=== PATIENT | female | born 2000 | race Caucasian/White ===

== ENCOUNTER 2021-10-02 13:49 | Emergency (ER) | payer OTHER, SELFPAY ==
[2021-10-02 13:58] VITALS: BP 104/68; PULSE 74; RESP 18; TEMP 36.9; O2SAT 98; BMI 21.3
--- NOTE | 2021-10-02 14:07 | CRLHL7_ITS ---
For Patients: As a result of the Century Cures Act, medical imaging exams and procedure reports are released immediately into your electronic medical record. You may view this report before your referring provider. If you have questions, please contact your health care provider. INDICATION: Right lower quadrant pain. TECHNIQUE: Ultrasound OB pelvis transabdominal and transvaginal. Real-time aparicio-scale imaging of the pelvis was performed. COMPARISON: None. FINDINGS: Small anechoic structure in the endometrial canal measures 5 x 2 x 4 mm, with a mean diameter of 3.7 mm. This is probably a gestational sac, which would correspond to of 5 weeks and 1 day. No yolk sac or pole. The ovaries are of normal size. No suspicious fluid collections in the cul-de-sac. IMPRESSION: Probable gestational sac in the endometrial canal. Recommend correlation with quantitative beta HCG and follow-up pelvic ultrasound as indicated. Dictated by Asher Stover MD @ 10/02/2021 3:25:08 PM (Electronically Signed)
--- NOTE | 2021-10-02 14:07 | ED.ABDPAIN ---
HPI - Abdominal Pain General Chief Complaint: Abdominal Pain Stated Complaint: w Abdominal Cramping Time Seen by Provider: 10/02/21 13:55 History of Present Illness HPI narrative: This 21-year-old female comes in reporting pain in her right lower quadrant that began last evening. She states that she is 4-6 weeks . She called the OB Clinic and was instructed to come here to rule out of possible ectopic . She does not have any vaginal bleeding or discharge. She did have her appendix removed about 3 months ago and completely recovered from that episode. Related Data Home Medications Medication Instructions Recorded Confirmed No Known Home Medications 10/02/21 10/02/21 Allergies Allergy/AdvReac Type Severity Reaction Status Date / Time lactose AdvReac Intermediate Verified 09/29/21 09:56 Review of Systems Status of ROS Reports: 10 or more systems reviewed and unremarkable except as noted in History and below Narrative Constitutional: No fevers, no weight gain or loss. Eyes: No discharge. No vision changes. HENT: No congestion, no sore throat, no ear pain. Cardiovascular: No chest pain, no palpitations. Respiratory: No shortness of breath, no wheezes, no cough. Gastrointestinal: No vomiting, no diarrhea. Abdominal pain as described above. Genitourinary: No dysuria, no hematuria. Musculoskeletal: Normal range of motion. Skin: No rashes, no pruritis. Neurological: No dizziness, weakness, sensory change, speech change. Endo/Heme/Allergies: No bruising or bleeding. No polydipsia. Pysch: no suicidality, no anxiety, no insomnia. All other systems reviewed and are negative. PFSH PFSH Social History Smoking Status: Never smoker How often do you have a drink containing alcohol: monthly or less How often do you have six or more drinks on one occasion: Never AUDIT-C Alcohol total score: 1 Non-prescribed substance use: denies use Exam Narrative: Exam Narrative: Constitutional: Well-developed, well-nourished, no acute distress. HEENT: Normocephalic, atraumatic. Neck: Normal range of motion. Nontender. Supple. Heart: Regular. No murmurs. Normal rate. Intact distal pulses. Lungs: Clear to auscultation. No chest discomfort. No wheezes, rhonchi, or rales. Abdomen: Normal bowel sounds. Mild tenderness in the right lower quadrant. No rebound tenderness. Genitalia: Deferred. Back: No midline tenderness. Normal range of motion. Extremities: Normal range of motion. No injury. Skin: Intact. No rash. Warm. No erythema or pallor. Neurologic: No altered sensation. No weakness. Alert and oriented. Psychiatric: No suicidality. No anxiety or depression. No insomnia. Nursing notes and vitals signs are reviewed. Const: Vital Signs, click to edit/add: Vital Signs - 24 hr 10/02/21 13:58 Temperature 98.5 F Pulse Rate [Right Pulse Oximeter] 74 Respiratory Rate 18 Blood Pressure [Ri ght Upper Arm] 104/68 Pulse Oximetry 98 Oxygen Delivery Me thod Room Air Course Vital Signs Vital signs: Initial Vital Signs Temperature 98.5 F 10/02/21 13:58 Temperature Source Temporal Artery Scan 10/02/21 13:58 Pulse Rate 74 10/02/21 13:58 Respiratory Rate 18 10/02/21 13:58 Blood Pressure 104/68 10/02/21 13:58 Blood Pressure Mean 80 10/02/21 13:58 Blood Pressure Position Sitting 10/02/21 13:58 Pulse Oximetry 98 10/02/21 13:58 Oxygen Delivery Method 10/02/21 13:58 Vital Signs Temperature 98.5 F 10/02/21 13:58 Pulse Rate 74 10/02/21 13:58 Respiratory Rate 18 10/02/21 13:58 Blood Pressure 104/68 10/02/21 13:58 Pulse Oximetry 98 10/02/21 13:58 Oxygen Delivery Method 10/02/21 13:58 Temperature 98.5 F 10/02/21 13:58 Pulse Rate 74 10/02/21 13:58 Respiratory Rate 18 10/02/21 13:58 Blood Pressure 104/68 10/02/21 13:58 Pulse Oximetry 98 10/02/21 13:58 Oxygen Delivery Method 10/02/21 13:58 MDM - Abdominal Pain MDM Narrative Medical decision making narrative: This patient is 4-6 weeks and comes in with some pain in her right lower quadrant. She had her appendix removed about 3 months ago. A pelvic ultrasound was performed which shows an intrauterine . There is a corpus luteum on the right ovary is likely causing some discomfort for her. These results are communicated with the patient. She is okay to return home to continue current plans. Discharge Plan Discharge Clinical Impression: Abdominal pain Additional Instructions: Follow up with MD as needed. Return if worsening or recurrent symptoms happen. Prescriptions: No Action No Known Home Medications Follow Up/Referrals: Provider,Not a Local [Primary Care Provider] - Stand Alone Forms: [employer] Info Instructions
== END 2021-10-02 15:08 | disposition home or self-care (01) ==
LOC: ED 14:26
PROVIDERS: Emergency Provider Emergency Medicine Emergency Medical Services
DX: R10.31 Right lower quadrant pain (principal); Z3A.01 Less than 8 weeks gestation of pregnancy
CPT/HCPCS: 76801; 76817; 99283; 99284

== ENCOUNTER 2021-10-13 14:47 | Outpatient (CLI) | payer OTHER, SELFPAY ==
[2021-10-13 20:33] LABS: Hepatitis B Surface Antigen* Negative (Negative)
[2021-10-13 20:44] LABS: HIV 1/2/P24 Combo Screen* Negative (Negative)
[2021-10-13 20:50] LABS: Hepatitis C Virus Antibody* Negative (Negative)
[2021-10-13 22:12] LABS: Chlamydia DNA Amplified* NOT DETECTED (No Detected); GC DNA Amplified* NOT DETECTED (No Detected)
[2021-10-15 16:11] LABS: Varicella-Zoster Virus Ab, IgG 618.8 IV
[2021-10-15 16:14] LABS: Rubella Antibody IgG 13.3 IU/mL
[2021-10-15 21:10] LABS: Rapid Plasma Reagin (RPR) Non Reactive (Non Reactive)
== END 2021-10-13 14:48 | disposition home or self-care (01) ==
PROVIDERS: Visit Provider Advanced Practice Midwife
DX: Z34.91 Encounter for supervision of normal pregnancy, unspecified, first trimester (principal); Z3A.01 Less than 8 weeks gestation of pregnancy
CPT/HCPCS: 76817; 84702; 86592; 86703; 86762; 86787; 86803; 86850; 86900; 86901; 87086; 87340; 87491; 87591

== ENCOUNTER 2021-10-15 15:35 | Outpatient (CLI) | payer OTHER, SELFPAY | END 2021-10-15 15:36 | disposition home or self-care (01) | PROVIDERS: Visit Provider Advanced Practice Midwife | DX: Z34.90 Encounter for supervision of normal pregnancy, unspecified, unspecified trimester (principal) | CPT/HCPCS: 84702 ==

== ENCOUNTER 2021-10-23 08:15 | Outpatient (CLI) | payer OTHER, SELFPAY ==
--- NOTE | 2021-10-23 08:15 | CRLHL7_ITS ---
For Patients: As a result of the Century Cures Act, medical imaging exams and procedure reports are released immediately into your electronic medical record. You may view this report before your referring provider. If you have questions, please contact your health care provider. INDICATION: Follow-up viability COMPARISON: 10/13/2021 TECHNIQUE: Real-time aparicio-scale imaging of the pelvis was performed. FINDINGS: Sonographic imaging demonstrates a single living intrauterine gestation. The embryo demonstrates a regular cardiac rate measuring 155 beats per minute. The embryo`s crown-rump length measurement of 1.5 cm corresponds to a gestational age of 7 weeks 6 days with a sonographic due date of 06/05/2022. There is a normal-appearing yolk sac. There are no gross abnormalities noted within the embryo at this early state of development. The gestational sac has a normal appearance. There is no evidence of a perigestational hemorrhage. The amount of fluid within the sac appears appropriate for gestational age. The cervix is closed. The myometrium appears normal. The ovaries are of normal size. Corpus luteal cyst right ovary. There are no suspicious fluid collections noted in the cul-de-sac. IMPRESSION: Normal first trimester OB ultrasound exam. Gestational age calculated at 7 weeks 6 days with a sonographic due date of 06/05/2022. Dictated by Manolo Montgomery MD @ 10/23/2021 10:18:02 AM (Electronically Signed)
== END 2021-10-23 08:16 | disposition home or self-care (01) ==
LOC: US 08:17
PROVIDERS: Visit Provider Advanced Practice Midwife
DX: Z34.91 Encounter for supervision of normal pregnancy, unspecified, first trimester (principal); Z3A.01 Less than 8 weeks gestation of pregnancy
CPT/HCPCS: 76817

== ENCOUNTER 2022-01-20 12:21 | Outpatient (CLI) | payer OTHER, SELFPAY | END 2022-01-20 12:22 | disposition home or self-care (01) | LOC: US 12:21 | PROVIDERS: Visit Provider Pediatrics Neonatal-Perinatal Medicine | DX: O98.512 Other viral diseases complicating pregnancy, second trimester (principal); Z3A.20 20 weeks gestation of pregnancy | CPT/HCPCS: 76811 ==

== ENCOUNTER 2022-03-16 13:38 | Outpatient (CLI) | payer SELFPAY ==
[2022-03-18 02:21] LABS: Rapid Plasma Reagin (RPR) Non Reactive (Non Reactive)
== END 2022-03-16 13:39 | disposition home or self-care (01) ==
PROVIDERS: Visit Provider Advanced Practice Midwife
DX: Z34.93 Encounter for supervision of normal pregnancy, unspecified, third trimester (principal); Z3A.28 28 weeks gestation of pregnancy
CPT/HCPCS: 86592

== ENCOUNTER 2022-04-28 18:15 | Outpatient (CLI) | payer OTHER, SELFPAY ==
[2022-04-28 19:48] VITALS: RESP 16; TEMP 36.9
[2022-04-28 19:51] VITALS: BP 107/62; PULSE 82
--- NOTE | 2022-04-28 22:55 | PM.OBHPAP1 ---
OB - H&P; HPI Antepartum History of Present Illness Date Seen: 04/28/22 Chief complaint: Abdominal injury by dog Narrative: Dara Michaels is a 22 year old at 34 2/7 weeks gestation that presented to OB triage for evaluation following a head-butt hit to her abdomen by her [place] dog. She reports the incident occurred at about 430 pm this afternoon. She did not fall but reported having sudden abdominal discomfort. Initially she just thought the pain was from the hit but then began to notice continuing abdominal discomfort and contractions. She called and was advised to come in for further evaluation. On arrival she had contractions about every 5 minutes, more frequent than at home. Since then, they have slowly spaced out some but she continues to have 6+ contractions per hour. She has irritability that she also notices between the contractions. She was not aware of contractions prior to the incident. She denies any leaking of fluid or bleeding. She does endorse active movement. She has an anterior placenta. OB Problem List: 1. Autoimmune disorder (likely Ankylosing spondylitis, her mom has and she has s/sx but no dx) ? growth US at 32weeks: Plans to do 36 week growth US 2. Arthritis in her hips and feet 3. Carpal tunnel 4. ADHD and anxiety (not currently taking medications, would like therapy) Was taking Adderall, stopped with ; Considering restarting 5. Sister with Von[employer]illebr[employer] 6. Asthma, seasonal Uses albuterol nebulizer usually in fall Has inhaler as needed 7. COVID in early November Level II US: Normal per Dr. Mckeon Growth US at 32 weeks: Declined, plans 36 week Growth US at 36 weeks: ordered Review of Systems Status of ROS: Reports: 6 or more systems reviewed and unremarkable except as noted in History and below Cardio: Denies: lightheadedness or shortness of breath with exertion Resp: Denies: shortness of breath GI: Reports: abdominal pain (Mild, 4/10; more wave like than constant; some tenderness) Meds Home Medications and Allergies Home Medications Medication Instructions Recorded Confirmed Type ferrous fumarate 200 mg (65 mg 1 tab PO QDAY 04/27/22 04/28/22 History iron)-vit C 25 mg tablet,extend release prenat.vits,kylee,[id number]-[id number]-[id number] 1 tab PO QDAY 04/27/22 04/28/22 History Allergies Allergy/AdvReac Type Severity Reaction Status Date / Time lactose AdvReac Intermediate Verified 04/27/22 10:55 OB - H&P: Exam Physical Exam: Vital signs: Temp Pulse Resp BP 98.4 F 82 16 107/62 04/28/22 19:48 04/28/22 19:51 04/28/22 19:48 04/28/22 19:51 Constitutional: Constitutional: no acute distress Routine HEENT Exam: Head: Present atraumatic Routine Neck Exam: Neck: Present full ROM Routine Respiratory Exam: Comments: Regular rate and rhythm Routine Abdominal Exam: Abdominal: Present soft and tenderness (diffuse) Detailed Labor and Delivery Exam: Patient Gravid: Yes Dilation (cm): 0 Cervix position: mid Consistency: firm Contraction frequency (min): 8 Tachysystole: No Contraction intensity: Mild Fetus (Single): Station: -2 Amniotic Membrane Status: intact Heart Rate Baseline: 125 Monitor Accelerations: Present Monitor Decelerations: None Machine [employer] Sander Variability: Moderate (6-25) Routine Back/Spine/Pelvis Exam: Back/Spine: full ROM Routine Skin Exam: Present intact; Absent ecchymosis Routine Neurological Exam: Present alert and oriented X3 Routine Psychiatric Exam: Present normal affect, normal thought process and cooperative OB - A/P Antepartum Assessment and Plan (1) Abdominal trauma: Status: Acute (2) : Status: Acute Plan ASSESSMENT:? 22 at 34 2/7 weeks gestation? Blunt Abdominal Trauma, anterior placenta Contractions ? PLAN:? 1. Admission for 24 hours of observation from time of injury, occurred at [address] Toledo who agreed with plan. Recommended cervical exam, CBC, and fibrinogen. She is comfortable keeping her at [facility] for observation. Pt would transfer to higher level of care facility with NICU access if risk for delivery were to increase due to gestational age. 2. Reviewed concern for abdominal trauma with notable contractions, not feeling them prior, and risk for abruption. Reviewed warning s/sx including sharp abdominal pain, contractions, or vaginal bleeding. 3. Continuous FHR monitoring. 4. Discussed rest/discomfort options with patient including tylenol and/or unisom for pain and sleep. 5. Anticipate discharge at 24 hours post trauma Additional Plan Plan: other (Continues monitoring, observation)
[2022-04-28 23:15] VITALS: BP 99/55; PULSE 78
[2022-04-28 23:17] VITALS: RESP 16; TEMP 36.7
[2022-04-29] VITALS (32 sets, daily range): BP systolic 99–107; BP diastolic 56–64; PULSE 70–214; RESP 16; TEMP 36.4–36.8; O2SAT 82–99
[2022-04-29 01:07] LABS: Basophils Absolute Auto 0.02 K/uL (0.00-0.30); Basophils Percent Auto 0.2 % (0.0-3.0); Eosinophils Absolute Auto 0.24 K/uL (0.00-0.50); Eosinophils Percent Auto 2.8 % (0.0-7.0); Hematocrit 29.1 % (33.0-51.0); Hemoglobin* 9.6 gm/dL (12.0-16.0); Immature Granulocytes Abs Auto 0.08 K/uL (0.00-0.30); Immature Granulocytes Pct Auto 0.9 %; Mean Corpuscular HGB Conc 33 gm/dL (32-36); Mean Corpuscular Hemoglobin 29 pg (26-34); Mean Corpuscular Volume 88 fL (80-100); Monocytes Percent Auto 8.3 % (0.0-11.0); Neutrophils Absolute Auto 5.02 K/uL (1.7-7.0); Neutrophils Percent Auto 57.8 % (42.0-72.0); Platelet Count* 183 K/uL (140-440); Red Blood Count 3.29 m/uL (4.00-5.20); White Blood Count* 8.68 K/uL (4.50-11.00)
[2022-04-29 01:08] LABS: Slide Review Reflex No
[2022-04-29] MEDS: ACETAMINOPHEN 500 MG TABLET 1000 MG PO (01:20)
[2022-04-29] MEDS: hydrOXYzine pamoate 25 MG CAPSULE 100 MG PO (01:22)
[2022-04-29 01:24] LABS: Fibrinogen* 369 mg/dL (200-450)
--- NOTE | 2022-04-29 16:11 | W.PM.OB.MED ---
DS: Providers Provider Time Seen by Provider: 16:11 Date Seen: 04/29/22 Primary care physician: Cathy Atkinson CNM Attending Physician on discharge: Graciela Carvalho CNM DS: Diagnosis Discharge Diagnosis (1) Abdominal trauma: Status: Acute (2) : Status: Acute Discharge Plan Discharge Disposition: Home, Self-Care Primary Care Provider: Cathy Atkinson Patient Instructions: OB Pre-term (<35wks) () DC Activity Restrictions/Additional Instructions: Patient verbalized understanding of reviewed discharge instructions. Discharge Medications: No Action albuterol sulfate [Ventolin HFA] 90 mcg/actuation HFA aerosol inhaler 1 inh inhalation ONCE Qty: 6.7 0RF ferrous fumarate-vitamin C 200 mg (65 mg iron)-25 mg tablet extended release 1 tab PO QDAY prenat.vits,kylee,gbj-[id number]-nbggo Tablet 1 tab PO QDAY Forms: [employer] Info Instructions Hospital Course Course Hospital Course: Dara is a at 34. 3 days. She was admitted yesterday after being head butted by her large dog. Upon admit, she noted ctx, which at the time felt as though they were getting stronger. The decision was made to keep her for observation for the full 24 hours. heart tones have remained reassuring throughout her stay. Currently baseline 130, mod variability, accels present, no decels. Occ ctx noted, appear to have spaced out. Occasional periods of uterine irritability also noted. Dara states ctx feel less pronounced and frequent than they did yesterday. Agrees with discharge. Previously reviewed signs to observe for, including rigid abdomen, pain, frequent ctx, decreased movement, and bleeding. She will call/be seen if these occur. Has follow up routine appointment scheduled. Labs Labs: Laboratory Tests 04/29/22 04/29/22 Range/Units 01:00 01:00 WBC 8.68 (4.50-11.00) K/uL RBC 3.29 L (4.00-5.20) m/uL Hgb 9.6 L (12.0-16.0) gm/dL Hct 29.1 L (33.0-51.0) % MCV 88 (80-100) fL MCH 29 (26-34) pg MCHC 33 (32-36) gm/dL RDW Coeff of Niki 13.0 (11.5-15.5) % Plt Count 183 (140-440) K/uL Neut % (Auto) 57.8 (42.0-72.0) % Lymph % (Auto) 30.0 (20-44) % [place] % (Auto) 8.3 (0.0-11.0) % Eos % (Auto) 2.8 (0.0-7.0) % Baso % (Auto) 0.2 (0.0-3.0) % Neut # (Auto) 5.02 (1.7-7.0) K/uL Lymph # (Auto) 2.60 (0.90-2.90) K/uL [place] # (Auto) 0.70 (0.00-0.90) K/UL Eos # (Auto) 0.24 (0.00-0.50) K/uL Baso # (Auto) 0.02 (0.00-0.30) K/uL Fibrinogen 369 (200-450) mg/dL OB Problem List Additional Plan (1) Abdominal trauma: Status: Acute (2) : Status: Acute DS: Summary Vital Signs Vital Signs: Vital Signs Temp Pulse Resp BP Pulse Ox 04/29/22 15:56 97.8 F 04/29/22 12:10 97.6 F 04/29/22 08:05 98.3 F 04/29/22 03:58 97.9 F 16 04/28/22 23:17 98.1 F 16 04/28/22 19:48 98.4 F 16 04/29/22 15:56 74 99/56 L 04/29/22 15:53 97 04/29/22 15:48 97 04/29/22 15:43 98 04/29/22 15:38 98 04/29/22 15:33 98 04/29/22 15:28 97 04/29/22 15:23 96 04/29/22 15:18 97 04/29/22 15:13 97 04/29/22 15:08 98 04/29/22 15:03 98 04/29/22 14:58 97 04/29/22 14:53 98 04/29/22 14:48 97 04/29/22 14:43 97 04/29/22 14:38 97 04/29/22 14:33 97 04/29/22 14:28 98 04/29/22 14:23 98 04/29/22 14:18 98 04/29/22 14:13 98 04/29/22 14:08 98 04/29/22 14:03 97 04/29/22 13:58 97 04/29/22 13:53 98 04/29/22 12:10 75 107/64 99 04/29/22 12:09 82 L 04/29/22 08:07 75 100/56 L 04/29/22 03:59 81 100/59 L 04/28/22 23:15 78 99/55 L 04/28/22 19:51 82 107/62 Discharge Examination General appearance: alert, in no apparent distress and normal affect
--- NOTE | 2022-04-29 16:25 | PC.OBNST ---
NST Note NST Note Start: 04/28/22 18:19 Freq: ONCE Status: Active Protocol: Document 04/29/22 16:20 AB (Rec: 04/29/22 16:25 AB [id number]) NST Note 2 Para (# of births) 0 EDC 06/07/22 Gestational Age In Weeks & Days 34 Weeks & 3 Days Patient Presented with Complaint(s) of Observation after an injury If Observation after an injury, describe Patient reports her dog punching her abdomen while jumping on her Reactive Yes ALICE Acuña Date 04/29/22 Reactive Yes ALICE Mcclain Date 04/29/22 OB NST charge Yes Complete NST Note via Write Note Yes The provider's electronic signature indicates the NST is reactive/appropriate for gestational age. *Note to provider: If an addendum is required, open the patient's chart and click on the note under the Nurse/Allied Health tab.
== END 2022-04-29 16:22 | disposition home or self-care (01) ==
LOC: OB OUT 18:16 → OB 18:16
PROVIDERS: PCP Advanced Practice Midwife; Visit Provider Advanced Practice Midwife
DX: O26.893 Other specified pregnancy related conditions, third trimester (principal); S39.91XA Unspecified injury of abdomen, initial encounter; Z3A.34 34 weeks gestation of pregnancy
CPT/HCPCS: 36415; 59025; 85025; 85384; 99213; A9270

== ENCOUNTER 2022-05-01 17:36 | Outpatient (CLI) | payer OTHER, SELFPAY ==
[2022-05-01 17:45] VITALS: BP 116/65; PULSE 86; RESP 20; TEMP 36.6
[2022-05-01 17:46] VITALS: PULSE 98; O2SAT 99
[2022-05-01 18:12] LABS: Appearance Urine Clear (Clear); Bilirubin Urine Negative (Negative); Blood Urine Negative (Negative); Color Urine Yellow (Yellow); Glucose Urine Negative (Negative); Ketones Urine Negative (Negative); Leukocyte Esterase Urine Negative (Negative); Nitrite Urine Negative (Negative); Protein Urine Negative (Negative); Specific Gravity Urine 1.015 (1.000-1.030); Urobilinogen Urine 0.2 (0.2-1.0); pH Urine 7.5 (5.0-8.5)
[2022-05-01 18:20] LABS: Amnisure Rom* Negative
--- NOTE | 2022-05-01 21:10 | PC.OBNST ---
NST Note NST Note Start: 05/01/22 17:42 Freq: ONCE Status: Discharge Protocol: Document 05/01/22 20:19 [facility] (Rec: 05/01/22 21:09 [facility] [id number]) NST Note 1 Para (# of births) 0 EDC 06/07/22 Gestational Age In Weeks & Days 34 Weeks & 5 Days Patient Presented with Complaint(s) of Contractions/cramping,Leaking fluid Reactive Yes Appropriate for Gestational Age Yes RN Joe Mccoy RN Date 05/01/22 Reactive Yes Appropriate for Gestational Age Yes ALICE Ibanez RN Date 05/01/22 OB NST charge Yes Complete NST Note via Write Note Yes The provider's electronic signature indicates the NST is reactive/appropriate for gestational age. *Note to provider: If an addendum is required, open the patient's chart and click on the note under the Nurse/Allied Health tab.
== END 2022-05-01 20:19 | disposition home or self-care (01) ==
LOC: OB OUT 17:36 → OB 17:37
PROVIDERS: PCP Advanced Practice Midwife; Visit Provider Advanced Practice Midwife
DX: O26.893 Other specified pregnancy related conditions, third trimester (principal); Z3A.34 34 weeks gestation of pregnancy
CPT/HCPCS: 59025; 81003; 84112; 99213

== ENCOUNTER 2022-05-11 12:49 | Outpatient (CLI) | payer OTHER, SELFPAY ==
--- NOTE | 2022-05-11 12:15 | CRLHL7_ITS ---
For Patients: As a result of the Century Cures Act, medical imaging exams and procedure reports are released immediately into your electronic medical record. You may view this report before your referring provider. If you have questions, please contact your health care provider. INDICATION: growth, h/o COVID in COMPARISON: 10/23/2021 TECHNIQUE: Real time aparicio scale imaging of the fetus was performed. FINDINGS: Sonographic imaging demonstrates a single living intrauterine gestation. Fetus demonstrates a regular cardiac rate of 150 beats per minute. Fetus has a vertex position. The placenta lies anteriorly. Amniotic fluid volume appears normal and there is a single deepest vertical pocket: 6.3 cm. The estimated weight is 2882gm which lies at the 54th %. BPD 59th percentile. HC 15th percentile. AC 83rd percentile. FL 13th percentile. The HC/AC ratio measures 0.96 range (0.93-1.08). IMPRESSION: Sonographic gestational age 36 weeks 0 days and sonographic due date 06/08/2022. Estimated weight 54th percentile. Abdominal circumference 83rd percentile. Dictated by Manolo Montgomery MD @ 05/12/2022 12:29:56 PM (Electronically Signed)
== END 2022-05-11 12:50 | disposition home or self-care (01) ==
LOC: US 12:50
PROVIDERS: Visit Provider Advanced Practice Midwife
DX: O98.513 Other viral diseases complicating pregnancy, third trimester (principal); U07.1 COVID-19; Z3A.36 36 weeks gestation of pregnancy
CPT/HCPCS: 76816

== ENCOUNTER 2022-05-11 15:02 | Outpatient (CLI) | payer OTHER, SELFPAY ==
[2022-05-12 16:19] LABS: Strep B DNA Probe POSITIVE (Negative)
[2022-05-12 19:03] LABS: Strep B Pen/Amox Allergy No
== END 2022-05-11 15:03 | disposition home or self-care (01) ==
LOC: NFLDREF 15:03
PROVIDERS: Visit Provider Advanced Practice Midwife
DX: Z34.93 Encounter for supervision of normal pregnancy, unspecified, third trimester (principal); Z3A.36 36 weeks gestation of pregnancy
CPT/HCPCS: 87081; 87653

== ENCOUNTER 2022-05-16 23:49 | Outpatient (CLI) | payer OTHER, SELFPAY ==
[2022-05-17 00:07] VITALS: BP 121/69; PULSE 84
[2022-05-17 00:15] VITALS: RESP 16; TEMP 36.8
--- NOTE | 2022-05-17 00:49 | PC.OBNST ---
NST Note NST Note Start: 05/16/22 23:51 Freq: ONCE Status: Active Protocol: Document 05/17/22 00:48 FRANCISCO (Rec: 05/17/22 00:49 FRANCISCO [id number]) NST Note 2 Para (# of births) 1 EDC 06/07/22 Gestational Age In Weeks & Days 37 Weeks & 0 Days Patient Presented with Complaint(s) of Contractions/cramping, Decreased movement Reactive Yes Appropriate for Gestational Age Yes ALICE Barajas RNC Date 05/17/22 Reactive Yes Appropriate for Gestational Age Yes ALICE Cannon RN Date 05/17/22 OB NST charge Yes Complete NST Note via Write Note Yes The provider's electronic signature indicates the NST is reactive/appropriate for gestational age. *Note to provider: If an addendum is required, open the patient's chart and click on the note under the Nurse/Allied Health tab.
== END 2022-05-17 00:45 | disposition home or self-care (01) ==
LOC: OB OUT 23:49 → OB 23:50
PROVIDERS: Visit Provider Advanced Practice Midwife
DX: Z34.93 Encounter for supervision of normal pregnancy, unspecified, third trimester (principal); Z3A.37 37 weeks gestation of pregnancy
CPT/HCPCS: 59025; 99213

== ENCOUNTER 2022-06-01 11:27 | Outpatient (CLI) | payer OTHER, SELFPAY | END 2022-06-01 11:28 | disposition home or self-care (01) | PROVIDERS: Visit Provider Advanced Practice Midwife | DX: Z34.93 Encounter for supervision of normal pregnancy, unspecified, third trimester (principal); Z3A.39 39 weeks gestation of pregnancy | CPT/HCPCS: 85240; 85245; 85246; 85384; 85610; 85730 ==

== ENCOUNTER 2022-06-02 21:46 | Outpatient (CLI) | payer OTHER, SELFPAY ==
[2022-06-02 22:07] VITALS: BP 113/64; PULSE 82
[2022-06-02 22:10] VITALS: RESP 18; TEMP 37
--- NOTE | 2022-06-03 00:45 | PC.OBNST ---
NST Note NST Note Start: 06/02/22 21:50 Freq: ONCE Status: Active Protocol: Document 06/03/22 00:42 MARCEL (Rec: 06/03/22 00:44 MARCEL [id number]) NST Note 2 Para (# of births) 0 EDC 06/07/22 Gestational Age In Weeks & Days 39 Weeks & 3 Days Patient Presented with Complaint(s) of Contractions/cramping Reactive Yes Appropriate for Gestational Age Yes ALICE Aguillon, RN Date 06/03/22 Reactive Yes Appropriate for Gestational Age Yes ALICE Leigh RNC Date 06/03/22 OB NST charge Yes Complete NST Note via Write Note Yes The provider's electronic signature indicates the NST is reactive/appropriate for gestational age. *Note to provider: If an addendum is required, open the patient's chart and click on the note under the Nurse/Allied Health tab.
== END 2022-06-02 23:38 | disposition home or self-care (01) ==
LOC: OB OUT 21:47 → OB 21:48
PROVIDERS: Visit Provider Advanced Practice Midwife
DX: O47.1 False labor at or after 37 completed weeks of gestation (principal); Z3A.39 39 weeks gestation of pregnancy
CPT/HCPCS: 59025; 99213

== ENCOUNTER 2022-06-14 07:05 | Inpatient (IN) | payer OTHER, SELFPAY ==
[2022-06-14] VITALS (37 sets, daily range): BP systolic 94–131; BP diastolic 52–87; PULSE 69–113; RESP 16–20; TEMP 36.4–36.7; O2SAT 96–100; BMI 32.2
[2022-06-14] MEDS: miSOPROStoL 25 MCG/0.25 TABLET VAGINAL ×2 (08:18→11:30)
--- NOTE | 2022-06-14 09:19 | W.PM.LDBA ---
Documented by User: Jose C Tapia 06/14/22 09:32 Subjective History of Present Illness Date Seen: 06/14/22 Narrative: Dara is being admitted to Labor and Delivery for induction of labor for postdates. She is a 22 year old at 41.0 weeks gestation. Her full history and physical was done 05/18/22 by Janae Ramon CNM. Please see this for details. OB Problems list: 1. Autoimmune disorder (likely Ankylosing spondylitis, her mom has and she has s/sx but no dx) Growth US at 32 weeks: Plans to do 36 week growth US: see below Assumed but never formally tested No recommendations made by Dr. Mckeon 2. Arthritis in her hips and feet 3. Carpal tunnel 4. ADHD and anxiety (not currently taking medications, would like therapy) Was taking Adderall, stopped with ; Considering restarting No great research, usually recommend 2 weeks to establish 5. Sister (1/2 sister) dx with Von[employer]illebr[employer] or another bleeding disorder Recently found out; nobody in her family has a diagnosis of. Her mother does have heavy periods and PP hemorrhage after 1 of her births Still learning more about, believed to be from sisters fathers side (they share mother) Panel drawn to test for Von[employer]ille[employer] (06/01): WNL panel 6. Asthma, seasonal Uses albuterol nebulizer usually in fall Has inhaler as needed 7. COVID in early November Level II US: Normal per Dr. Mckeon Growth US at 32 weeks: Declined, plans 36 week Growth US at 36 weeks: 54%ile 8. Anemia 9.6 at 34 weeks in triage - does not need repeat at 36 weeks, consider admission CBC Was taking gummy iron, recommended oral tab w/ 65 mg environmental iron 9. GBS positive, NEEDS antibiotics in labor OB - Problem Based A/P Additional Plan (1) Post-dates : Status: Acute (2) Encounter for induction of labor: Status: Acute Plan ASSESSMENT:? 22 yo G2 P 0 at 41.0 weeks gestation? complicated by:?Post-dates, Family history of von Willebrand disease, Covid infection in , Anemia of , Autoimmune disease, arthritis. Anxiety, ADHD, Carpal Tunnel syndrome, Asthma, Positive GBS Labor type: Induced, Early labor? Category 1 FHR pattern.?? Labor complicated by: ? GBS positive ? PLAN:? 1. Routine intrapartum cares as ordered. Cytotec for cervical ripening per protocol. ? 2. Monitoring per policy, continuous? 3. Planning an Epidural for labor pain management. Candidate for analgesia of choice.?? 4. Patient encouraged to reposition and ambulate to promote physiologic labor and .? 5. GBS phrophylaxis initiated for GBS positive status. Will treat with antibiotics per protocol. 6. Anticipate ? Delivery/Labor/Induction Plan Plan: induction Induction method: per misoprostol protocol OB Exam Physical Exam Vital signs: Temp Pulse Resp BP Pulse Ox 97.7 F 77 16 110/64 98 06/14/22 08:21 06/14/22 08:19 06/14/22 08:21 06/14/22 08:19 06/14/22 07:30 Narrative: Vitals Reviewed? Psychiatric:? Alert and oriented x3? HEENT:? Normocephalic, atraumatic? Neck:? Supple?? Lungs:? Clear to auscultation bilaterally? Heart:? Regular rate and rhythm, no murmur, rub or gallop? Abdomen:? Soft, nontender, and gravid. Vertex by Aubrey's, confirmed with cervical exam.? Extremities:? No edema or erythema Detailed Labor and Delivery Exam Patient Gravid: Yes Dilation (cm): 0 Effacement (%): 10 Cervix position: mid Consistency: medium Contraction Frequency: irregular Contraction duration (sec): 60 Tachysystole: No Contraction intensity: Mild Fetus (Single) Station: -2 Amniotic Membrane Status: intact Heart Rate Baseline: 120 Monitor Accelerations: Present Monitor Decelerations: None [employer] Principal Variability: Moderate (6-25) Documented by User: Graciela Carvalho CNM 06/14/22 12:48 OB - Problem Based A/P Additional Plan (1) Post-dates : Status: Acute (2) Encounter for induction of labor: Status: Acute Plan ASSESSMENT:? 22 yo G2 P 0 at 41.0 weeks gestation? complicated by:?Post-dates, Family history of von Willebrand disease, Covid infection in , Anemia of , Autoimmune disease, arthritis. Anxiety, ADHD, Carpal Tunnel syndrome, Asthma, Positive GBS Labor type: Induced, Early labor? Category 1 FHR pattern.?? Labor complicated by: ? GBS positive ? PLAN:? 1. Routine intrapartum cares as ordered. Cytotec for cervical ripening per protocol. ? 2. Monitoring per policy, continuous? 3. Planning an Epidural for labor pain management. Candidate for analgesia of choice.?? 4. Patient encouraged to reposition and ambulate to promote physiologic labor and .? 5. GBS phrophylaxis to be initiated with active labor for GBS positive status. Will treat with antibiotics per protocol. 6. Anticipate ?
[2022-06-14 09:25] LABS: SARS PCR* Negative SARS-CoV-2 (Negative)
[2022-06-14] MEDS: LACTATED RINGERS 1000 ML 1,000 ML 1200 ML IV (14:08)
--- NOTE | 2022-06-14 14:29 | P.OBPN_ITS ---
Documented by User: Jose C Tapia 06/14/22 14:37 Subjective Date Seen: 06/14/22 Narrative: Dara is feeling crampy with her contractions. Her partner is present and supportive. Called to the beside for variables and late decels with contractions. IV fluid bolus was running and patient placed in hands and knees position which resolved the decelerations. Denies leaking of fluid and bleeding at this time. Objective Exam: Constitutional: Alert and oriented x3, mild distress, coping well? Vital signs stable, see nurse documentation?? Abdomen: gravid, contractions palpate mild with contractions and soft between Vital Signs: Last Vital Signs Temp 97.7 F 06/14/22 11:32 Pulse 72 06/14/22 14:09 Resp 18 06/14/22 11:32 BP 114/78 06/14/22 14:09 Pulse Ox 98 06/14/22 14:20 Pelvic Exam Comments: Deferred at this time Contractions Monitor mode: External Contraction Frequency: 1.5-2 Contraction pattern: Regular Contraction intensity: Mild Assessment Assessment: induction ongoing Station: -2 Status: Category ll Heart Rate Baseline: 120 [facility] Variability: Moderate (6-25) Monitor Accelerations: Present Monitor Decelerations: Variable Plan Plan: 22 yo G2 P 0 at 41.0 weeks gestation? complicated by:?Post-dates, Family history of von Willebrand disease, Covid infection in , Anemia of , Autoimmune disease, arthritis. Anxiety, ADHD, Carpal Tunnel syndrome, Asthma, Positive GBS Labor type: Induced, Early labor? Category 1 FHR pattern.?? Labor complicated by: ? GBS positive ? PLAN:? 1. Hold Cytotec dose at this time. IV fluid bolus and side lying release. ? 2. Monitoring per policy, continuous? 3. Planning an Epidural for labor pain management. Candidate for analgesia of choice.?? 4. Patient encouraged to reposition and ambulate to promote physiologic labor and .? 5. GBS phrophylaxis initiated for GBS positive status. Will treat with antibiotics per protocol. 6. Reevaluate in 1-2 hours PRN 7. Anticipate ? Documented by User: Graciela Carvalho CNM 06/14/22 18:35 Plan Plan: 22 yo G2 P 0 at 41.0 weeks gestation? complicated by:?Post-dates, Family history of von Willebrand disease, Covid infection in , Anemia of , Autoimmune disease, arthritis. Anxiety, ADHD, Carpal Tunnel syndrome, Asthma, Positive GBS Labor type: Induced, Early labor? Category 1 FHR pattern.?? Labor complicated by: ? GBS positive ? PLAN:? 1. Hold Cytotec dose at this time. IV fluid bolus and side lying release. ? 2. Monitoring per policy, continuous? 3. Planning an Epidural for labor pain management. Candidate for analgesia of choice.?? 4. Patient encouraged to reposition and ambulate to promote physiologic labor and .? 5. GBS phrophylaxis initiated for GBS positive status. Will treat with antibiotics per protocol. 6. Reevaluate in 1-2 hours PRN 7. Anticipate ? APRIL Mantilla with supervision by Graciela Carvalho CNM
[2022-06-14 15:01] LABS: Basophils Absolute Auto 0.02 K/uL (0.00-0.30); Basophils Percent Auto 0.3 % (0.0-3.0); Eosinophils Absolute Auto 0.13 K/uL (0.00-0.50); Eosinophils Percent Auto 1.6 % (0.0-7.0); Hematocrit 36.3 % (33.0-51.0); Immature Granulocytes Abs Auto 0.05 K/uL (0.00-0.30); Immature Granulocytes Pct Auto 0.6 %; Lymphocytes Percent Auto 28.9 % (20-44); Mean Corpuscular HGB Conc 33 gm/dL (32-36); Mean Corpuscular Hemoglobin 29 pg (26-34); Mean Corpuscular Volume 87 fL (80-100); Monocytes Percent Auto 7.4 % (0.0-11.0); Neutrophils Absolute Auto 4.87 K/uL (1.7-7.0); Neutrophils Percent Auto 61.2 % (42.0-72.0); Platelet Count* 227 K/uL (140-440); RDW Coefficient of Variation % 15.1 % (11.5-15.5); Red Blood Count 4.18 m/uL (4.00-5.20); White Blood Count* 7.96 K/uL (4.50-11.00)
[2022-06-14 15:06] LABS: Slide Review Reflex No
[2022-06-14] MEDS: LACTATED RINGERS 1000 ML 1,000 ML 125 ML IV (15:14)
[2022-06-14] MEDS: AMPICILLIN 2 GM in 0.9 % SODIUM CHLORIDE Mini-bag 100 ML IVPB (16:48)
--- NOTE | 2022-06-14 17:03 | PM.OBPNL ---
Documented by User: Jose C Tapia 06/14/22 17:08 Subjective Date Seen: 06/14/22 Narrative: Dara is sitting up on the birthing ball, breathing through her contractions. Her partner is present and supportive, asking appropriate questions. She would like a cervical exam and to discuss pain medication options. Objective Exam: Constitutional: Alert and oriented x3, moderate distress, coping well? Vital signs stable, see nurse documentation?? Abdomen: gravid, contractions palpate moderate with contractions and soft between Vital Signs: Last Vital Signs Temp 97.8 F 06/14/22 15:45 Pulse 69 06/14/22 15:45 Resp 18 06/14/22 15:45 BP 118/71 06/14/22 15:45 Pulse Ox 98 06/14/22 14:20 Pelvic Exam Dilation (cm): 1 Effacement (%): 30 Station: -2 Contractions Monitor mode: External Contraction Frequency: 1-3 Contraction pattern: Regular Contraction intensity: Moderate Assessment Assessment: induction ongoing Station: -2 Status: Category l Heart Rate Baseline: 120 [employer] Variability: Moderate (6-25) Monitor Accelerations: Present Monitor Decelerations: None Plan Plan: 22 yo G2 P 0 at 41.0 weeks gestation? complicated by:?Post-dates, Family history of von Willebrand disease, Covid infection in , Anemia of , Autoimmune disease, arthritis. Anxiety, ADHD, Carpal Tunnel syndrome, Asthma, Positive GBS Labor type: Induced, Early labor? Category 1 FHR pattern.?? Labor complicated by: ? GBS positive ? PLAN:? 1. Nitrous for pain. Reviewed IV medication option and Epidural. Patient desired Nitrous at this time. ? ? 2. Monitoring per policy, continuous? 3. Patient encouraged to reposition and ambulate to promote physiologic labor and .? 4. GBS phrophylaxis initiated for GBS positive status. Will treat with antibiotics per protocol. 5. Anticipate ? Documented by User: Graciela Carvalho CNM 06/14/22 18:36 Plan Plan: 22 yo G2 P 0 at 41.0 weeks gestation? complicated by:?Post-dates, Family history of von Willebrand disease, Covid infection in , Anemia of , Autoimmune disease, arthritis. Anxiety, ADHD, Carpal Tunnel syndrome, Asthma, Positive GBS Labor type: Induced, Early labor? Category 1 FHR pattern.?? Labor complicated by: ? GBS positive ? PLAN:? 1. Nitrous for pain. Reviewed IV medication option and Epidural. Patient desired Nitrous at this time. ? ? 2. Monitoring per policy, continuous? 3. Patient encouraged to reposition and ambulate to promote physiologic labor and .? 4. GBS phrophylaxis initiated for GBS positive status. Will treat with antibiotics per protocol. 5. Anticipate ? APRIL Mantilla with supervision by Graciela Carvalho CNM
[2022-06-14] MEDS: fentaNYL 100 MCG/2 ML inj IVP ×2 (17:35→18:17)
[2022-06-14] MEDS: TERBUTALINE 1 MG/ML INJ 0.25 MG SUBCUT (19:10)
--- NOTE | 2022-06-14 19:37 | P.OBPN_ITS ---
Documented by User: Jose C Tapia 06/14/22 19:48 Subjective Date Seen: 06/14/22 Narrative: Pt asking to get epidural for pain management. Having painful contractions every 1-3 minutes, in hands and knees position with partner present and supportive. Discussed plan of care and was preparing fo an epidural when FHR dropped to the 40's for two minutes with slow return to baseline after 6 minutes. Position changes and IV fluids running, Code White was called and patient was brought b ack to the OR. At time of Code White, called by ILYA, Dr. Danielle was notified via phone. Instructed to give Terbutaline by Dr. Danielle. FHT's improved in OR following administration to 115's with moderate variability. Objective Exam: Constitutional: Alert and oriented x3, moderate distress, coping well? Vital signs stable, see nurse documentation?? Abdomen: gravid, contractions palpate strong with contractions and soft between Vital Signs: Last Vital Signs Temp 97.9 F 06/14/22 18:06 Pulse 70 06/14/22 18:05 Resp 20 06/14/22 18:06 BP 123/87 06/14/22 18:05 Pulse Ox 100 06/14/22 19:07 Pelvic Exam Dilation (cm): 2 Contractions Monitor mode: External Contraction pattern: Regular Contraction intensity: Moderate Assessment Station: -2 Status: Category l Heart Rate Baseline: 115 Custodial Variability: Moderate (6-25) Monitor Accelerations: Present Monitor Decelerations: Prolonged Labor Progress: Intact membranes. Plan Plan: Dr. Danielle arrived in OR, cervical exam performed. Care assumed by Dr. Danielle with plan to proceed with section due to concerning Category 2 with prolonged decel remote from delivery. Documented by User: Graciela Carvalho CNM 06/14/22 19:59 Subjective Narrative: Pt asking to get epidural for pain management. Having painful contractions every 1-3 minutes, in hands and knees position with partner present and supportive. Discussed plan of care and was preparing fo an epidural when FHR dropped to the 40's for two minutes with slow return to baseline after 6 minutes. Position changes and IV fluids running, Tor Ferguson was called and [facility] was [facility]. At time of Tor Ferguson, called by CN, Dr. Danielle was notified via phone. Instructed to give Terbutaline by Dr. Danielle. FHT's improved initially in the OR following administration to 115's with moderate variability.
--- NOTE | 2022-06-14 20:47 | PM.OBPRCCS ---
Procedure Pre-op/Post-op diagnoses: Pre-Op/Post-Op Diagnoses Operation Date: 06/14/22 19:40 <No data on this case meets the specified criteria> Procedure Done: Global Procedure Details: Procedures Operation Date: 06/14/22 19:40 Actual Procedure Side Surgeon p Section Padmini Danielle MD Disposition: floor Narrative: DELIVERY BY SECTION Date of Service: 06/14/2022 Delivery time: 1943 Summary: Admitted for IOL for postdate, Primary Lower uterine transverse section, Pfannenstiel, Closed with sutures, QBL 442 cc, No complications, Findings: Normal uterus, bilateral ovaries and tubes 8, 9 Weight pending. Primary Indication: Nonreassuring heart tracing remote from delivery Procedures: Primary Lower uterine transverse section Specimens Removed: Placenta Surgeon: Padmini Danielle MD Truck Cleaner Surgeon: None Anesthesia: Spinal, TAP Report: I was notified 1906 that an emergency section was called on Dara, who is a midwifery patient undergoing induction of labor for postdates. She had a 6 minutes decel down to the 40s. I requested 0.25 mg of terbutaline be given immediately. I arrived in the OR at 0, patient was on hands and knees position and NST was cat I: 120 bpm, moderate variability, +accels and no decel. Unfortunately, patient was only 2/50/-3 with membrane intact on my cervical exam. I reviewed her NST and noted multiple late and variable decels throughtout her labor course. Discussed with patient that given her strip and that she's remote from delivery, I would recommend proceeding with a delivery. Risks, benefits, and alternatives discussed with patient. Patient would like to proceed with delivery. Prophylactic antibiotic, 2 g of Ancef was given before patient was taken to OR. After arrival to the operating room patient was placed in the supine position with left lateral tilt after administration of spinal anesthesia. Splash prep with iodine was used. Laparotomy A pfannenstiel incision was made through the anterior abdominal wall with #10 scalpel approximately 2 cm above the pubic symphysis. The incision was extended sharply with the #10 scalpel through the subcutaneous tissue to the level of fascia. The fascia was entered sharply with a #10 scalpel (Pfannenstiel) in the midline and extended in semi-elliptical fashion bluntly with digits. The rectus muscles were in the midline bluntly with digits. The peritoneum was then entered bluntly. The peritoneal incision was then extended superiorly and inferiorly under direct visualization with care being taken to avoid bladder and bowel. No adhesions were noted. The peritoneal incision was enlarged bluntly by lateral traction from the surgeon's and field research assistant's hand. Rajesh retractor was inserted into the abdomen. Delivery A bladder flap was not developed. A low transverse hysterotomy was made then with #10 scalpel and extended laterally and cephalad with fingers in a low transverse fashion with Manu Shields technique with care being taken to avoid injury to the fetus. The amniotic cavity (membrane) was then entered with spontaneous rupture of membrane, and the amniotic fluid was noted to be thick meconium, fetus was delivered cephalic. With delivery of the baby, no extension was noted. Placenta was delivered spontaneously with steady traction on cord and manual separation of placenta from uterine wall. Closure Uterine cavity was cleaned after placental delivery with lap sponge x 2. The hysterotomy was closed in one layer with stitches using 0 vicryl with continuous locking stitches. One [id number] was placed at right uterine angle. Hemostasis was achieved as needed with electrocautery. The ovaries/tubes/uterine surface were evaluated. They were found to be normal. Fascia was closed with running stitches using 0 vicryl. Hemostasis was checked for and found to be adequate. The subcutaneous layer was closed with running Vicryl sutures. The skin was closed with 4-0 vicryl subcuticular sutures . The incision was cleaned and covered with a silver dressing and the procedure considered terminate at this time. Intraoperative Complications: None QBL: 442 cc Uterotonics: 30 u of pitocin Disposition: The patient tolerated the procedure well. She was recovered in Obstetric PACU for close monitoring in stable condition, with a contracted uterus and normal transvaginal bleeding. The infant was sent to mother?s bedside/PACU. The placenta was sent to pathology.
--- NOTE | 2022-06-14 21:02 | W.ANESCHARGE ---
Anesthesia Charges Start Date/Time Anesthesia Start Date: 06/14/22 Anesthesia Start Time: 19:25 Stop Date/Time Anesthesia Stop Date: 06/14/22 Anesthesia Stop Time: 20:38 Summary Emergency: SPECIAL EDUCATION RESOURCE ROOM TEACHER
--- NOTE | 2022-06-14 21:03 | W.PM.NB ---
Nerve Block Nerve Block Time Seen by Provider: 20:30 Date Seen: 06/14/22 Type of block requested by surgeon for post-operative analgesia: TAP Side: bilateral Time out performed: Yes Verification of patient name: Yes Verification of date of : Yes Site marking: not applicable Name of person performing procedure: J Luis Lopez Continuous monitoring Was continuous monitoring of O2 sat, B/P, traffic monitor specialist, recorded every 15 minutes?: Yes Procedure Checklist: sterile prep, needles and gloves Ultrasound guided. Images saved: Yes Medications given in 5ml increments after negative aspiration: Marcaine %: 0.25 mL: 30 Needle gauge: 20 and Exparel mL: 10 Needle gauge: 20 Patient tolerated procedure well: Yes
[2022-06-14] MEDS: ACETAMINOPHEN 500 MG TABLET 1000 MG PO (23:24)
[2022-06-14] MEDS: AMPICILLIN 1 GM in 0.9 % SODIUM CHLORIDE Mini-bag 100 ML IVPB (23:36)
[2022-06-15] VITALS (25 sets, daily range): BP systolic 99–115; BP diastolic 62–71; PULSE 78–96; RESP 16–20; TEMP 36.4–37; O2SAT 96–98
[2022-06-15] MEDS: CEFAZOLIN 2 GM in 0.9 % SODIUM CHLORIDE Mini-bag 100 ML IVPB ×4 (01:28→20:37)
[2022-06-15] MEDS: AMPICILLIN 1 GM in 0.9 % SODIUM CHLORIDE Mini-bag 100 ML IVPB (03:22)
[2022-06-15] MEDS: KETOROLAC 30 MG/ML inj IVP ×4 (03:23→22:08)
[2022-06-15 07:03] LABS: Hemoglobin* 9.4 gm/dL (12.0-16.0)
[2022-06-15] MEDS: DOCUSATE SODIUM 100 MG CAPSULE PO (09:34)
--- NOTE | 2022-06-15 10:38 | PM.OBPNCS1 ---
OB - PN: A/P Assessment and Plan (1) care following delivery: Status: Acute (2) Lactating mother: Status: Acute Plan day: 1 Plan: routine postop care OB - PN: Subj Subjective Date Seen: 06/15/22 Patient comments: no complaints, pain well controlled and tolerating diet [place] status: and doing well [place] feeding status: exclusively Narrative: The patient feels well.? The pain is well controlled with current medications.? She has no new complaints.? Urinary output is adequate and she she has a Zavala catheter in place. She plans to get out of bed shortly as the nurse wanted her to eat first. Can consider removing the Zavala cath after ambulation if no concerns.? Has a good appetite, is tolerating a general diet. She denies passing flatus yet. Her abdomen appears slightly distended but is soft. Has scant amount of rubra lochia.?Hgb 9.4. Denies feeling lightheaded or dizzy with sitting upright. Will order PO iron supplementation. OB - PN: Obj Exam Physical Exam: Vital signs: Temp Pulse Resp BP Pulse Ox O2 Del Method 98.2 F 78 18 99/62 97 Room Air 06/15/22 08:15 06/15/22 08:15 06/15/22 08:15 06/15/22 08:15 06/15/22 03:16 06/15/22 08:15 Constitutional: Constitutional: no acute distress Routine Neck Exam: Neck: Present full ROM Routine Respiratory Exam: Respiratory: Present CTA bilaterally Routine Cardiovascular Exam: Cardiovascular: Present RRR Routine Abdominal Exam: Abdominal: Present distended, normal bowel sounds and soft Fundus: Present firm Routine Psychiatric Exam: Psychiatric: Present normal affect Wound Management: Examination: Present dressed, clean and bloody drainage (drainage on lower middle part of dressing marked. will monitor.) Urinary Catheter Management: Urethral: Cath placed during this visit: yes Urethral indwelling: Yes Reason for continuing: decision to DC catheter (can consider d/c if able to ambulate without difficulty.) Insertion date: 06/14/22 Insertion time: 19:39 OB - PN: Obj Data Labs Labs: Laboratory Results - last 24 hr 06/14/22 06/15/22 13:39 06:57 WBC 7.96 RBC 4.18 Hgb 12.0 9.4 L Hct 36.3 MCV 87 MCH 29 MCHC 33 RDW Coeff of Niki 15.1 Plt Count 227 Neut % (Auto) 61.2 Lymph % (Auto) 28.9 [place] % (Auto) 7.4 Eos % (Auto) 1.6 Baso % (Auto) 0.3 Neut # (Auto) 4.87 Lymph # (Auto) 2.30 [place] # (Auto) 0.60 Eos # (Auto) 0.13 Baso # (Auto) 0.02 Blood Type O Positive Antibody Screen NEGATIVE
[2022-06-15] MEDS: ACETAMINOPHEN 500 MG TABLET 1000 MG PO (15:00)
[2022-06-16] MEDS: KETOROLAC 30 MG/ML inj IVP (03:38)
[2022-06-16 03:40] VITALS: BP 119/82; PULSE 85; RESP 18; TEMP 37.1; O2SAT 96
[2022-06-16] MEDS: ACETAMINOPHEN 500 MG TABLET 1000 MG PO ×2 (06:57→13:58)
--- NOTE | 2022-06-16 07:27 | P.DS_ITS ---
DS: Providers Provider Time Seen by Provider: : Date Seen: 06/16/22 Date of admission: 06/14/22 07:05 Primary care physician: Not a Local Provider Admitting Clinician: Graciela Carvalho CNM Attending Physician on discharge: Graciela Carvalho CNM Date of Discharge: 06/16/22 DS: Diagnosis Discharge Diagnosis (1) care following delivery: Status: Acute (2) Lactating mother: Status: Acute (3) ADHD: Status: Acute (4) Anxiety: Status: Acute Exam Narrative: Exam Narrative: VSS. ?Afebrile GENERAL APPEARANCE: ?normal affect, alert, no distress MOOD: ?appropriate HEENT: normocephalic, neck supple, full ROM CHEST: ?Symmetrical chest wall movement. ?Normal respiratory effort. ?Clear to auscultation HEART: ?regular rate and rhythm ABDOMEN: ?soft, non-tender. Uterine fundus is firm, at Umbilicus, Midline and is appropriate for the stage of recovery. ?Bowel sounds present. EXTREMITIES: ?normal and trace edema SKIN: warm, dry. ?Dressing on, dry/intact. Area of shadowing marked previously on dressing. No extension since.? ?No signs of infection noted. Const: Vital Signs, click to edit/add: Vital Signs - 24 hr 06/15/22 08:15 06/15/22 08:05 06/15/22 09:05 Temperature 98.2 F Pulse Rate [Pulse Oximeter] 78 Respiratory Rate 18 18 18 Blood Pressure [Ri ght Arm] 99/62 Pulse Oximetry Oxygen Delivery Me thod Room Air 06/15/22 10:05 06/15/22 11:05 06/15/22 12:10 Temperature 97.6 F Pulse Rate [Pulse Oximeter] 92 Respiratory Rate 18 18 18 Blood Pressure [Ri ght Arm] 107/64 Pulse Oximetry Oxygen Delivery Me thod Room Air 06/15/22 12:05 06/15/22 13:05 06/15/22 14:05 Temperature Pulse Rate [Pulse Oximeter] Respiratory Rate 16 18 18 Blood Pressure [Ri ght Arm] Pulse Oximetry Oxygen Delivery Me thod 06/15/22 15:05 06/15/22 16:05 06/15/22 16:15 Temperature 98.4 F Pulse Rate [Pulse Oximeter] 85 Respiratory Rate 18 18 18 Blood Pressure [Ri ght Arm] 109/71 Pulse Oximetry Oxygen Delivery Me thod Room Air 06/15/22 17:05 06/15/22 18:05 06/15/22 19:05 Temperature Pulse Rate [Pulse Oximeter] Respiratory Rate 18 18 18 Blood Pressure [Ri ght Arm] Pulse Oximetry Oxygen Delivery Me thod 06/15/22 20:45 06/16/22 03:40 Temperature 98.6 F 98.7 F Pulse Rate [Pulse Oximeter] 96 85 Respiratory Rate 18 18 Blood Pressure [Ri ght Arm] 104/62 119/82 Pulse Oximetry 97 96 Oxygen Delivery Me thod Room Air Room Air OB - DS: Summary Hospital Course Hospital Course: Dara is a 22 y.o. G 2 P 1011 who was admitted to [facility] for IOL for post dates. ?She had an uncomplicated . ? The patient feels well. ?The pain is well controlled with current medications. ?She has no new complaints. ?She is breast feeding and reports things are going well.? the patient has done well.? Vitals have been stable.? She has remained afebrile.? Has a good appetite, is tolerating a general diet. ?She is voiding without difficulty.? She is passing gas and has not had a bowel movement.? She is ambulating and denies any dizziness.? Has Small amount of rubra lochia. She is planning mini pill for prevention. Problems: none plan: Discharge home with baby. Follow up in 2 weeks and 6 weeks. , may follow up with if needed Acute anemia, continue iron supplementation for 6 weeks Peripartum Data Procedures: Procedures Operation Date: 06/14/22 19:40 Actual Procedure Side Surgeon p Section Padmini Danielle MD complications: none Gender: Male Discharge Plan: Home Status at Discharge Functional status at discharge: independent ambulation Overall status at discharge: patient is progressing back to baseline Time Spent with Patient Time attestation: Total time spent providing and/or coordinating discharge services: Time spent: Less than 30 minutes Discharge Plan Discharge Disposition: Home, Self-Care Date of Admission: 06/14/22 07:05 Attending Provider on Discharge: Cathy Atkinson Primary Care Provider: Provider,Not a Local Condition: Stable Anticipated Discharge Date/Time: 06/16/22 15:31 Discharge Medications: New docusate sodium 100 mg Capsule 100 mg PO BID PRNQty: 100 0RF Rx Instructions: Take 1 cap 1-2 times a day as needed for constipation ibuprofen 600 mg Tablet 600 mg PO Q6H PRN (Reason: Pain) Qty: 60 0RF oxycodone 5 mg Tablet 5 - 10 mg PO Q4H PRN (Reason: Pain) Qty: 20 0RF Continued albuterol sulfate [Ventolin HFA] 90 mcg/actuation HFA aerosol inhaler 1 inh inhalation ONCE Qty: 6.7 0RF ferrous fumarate-vitamin C 200 mg (65 mg iron)-25 mg tablet extended release 1 tab PO QDAY prenat.vits,kylee,peb-crmm-xobdc Tablet 1 tab PO QDAY famotidine [Acid Controller] 20 mg tablet 20 mg PO DAILY PRN (Reason: heartburn) Discharge Orders: Discharge Order (Routine); Ordered 06/16/22 Ordered By: Cathy Atkinson Patient Education: OB Over the Counter Medication Information, OB /Breast Feeding Additional Instructions: Remove dressing in 1 week from Return in 2 weeks and 6 weeks for clinic visits Continue iron supplementation for 6 weeks Activity Level: Activity as Tolerated Discharge Diet: Regular Follow Up Appointments: Provider,Not a Local [Primary Care Provider] - Forms: [employer] Info Instructions
[2022-06-16 08:03] VITALS: BP 107/72; PULSE 77; RESP 16; TEMP 36.7; O2SAT 100
[2022-06-16] MEDS: FERROUS SULFATE 325 MG TABLET PO (08:08)
[2022-06-16] MEDS: DOCUSATE SODIUM 100 MG CAPSULE PO (08:08)
[2022-06-16] MEDS: IBUPROFEN 600 MG TABLET PO (09:02)
== END 2022-06-16 15:07 | disposition home or self-care (01) | DRG 788 ==
PROVIDERS: Obstetrics & Gynecology; Admitting Provider Advanced Practice Midwife; Visit Provider Advanced Practice Midwife
PROC: 10D00Z1 Extraction of Products of Conception, Low, Open Approach (ICD-10-PCS; CPT 59514; principal; 2022-06-14 19:25)
DX: O48.0 Post-term pregnancy (principal); O76 Abnormality in fetal heart rate and rhythm complicating labor and delivery; O99.824 Streptococcus B carrier state complicating childbirth; O99.02 Anemia complicating childbirth; D64.9 Anemia, unspecified; O99.344 Other mental disorders complicating childbirth; F90.9 Attention-deficit hyperactivity disorder, unspecified type; Z83.2 Family history of diseases of the blood and blood-forming organs and certain disorders involving the immune mechanism; M35.9 Systemic involvement of connective tissue, unspecified; J45.909 Unspecified asthma, uncomplicated; Z3A.41 41 weeks gestation of pregnancy; Z37.0 Single live birth
CPT/HCPCS: 01961; 36415; 59200; 85018; 85025; 86850; 86900; 86901; 87635; 88307; 99140; A9270; C9290; J0290; J0690; J1885; J2274; J2370; J2405; J2590; J3010; J3105; J3490; J7120

== ENCOUNTER 2022-08-12 11:55 | Outpatient (CLI) | payer OTHER, SELFPAY | END 2022-08-12 11:56 | disposition home or self-care (01) | LOC: NFLDREF 11:59 | PROVIDERS: Visit Provider Advanced Practice Midwife | DX: N93.9 Abnormal uterine and vaginal bleeding, unspecified (principal) | CPT/HCPCS: 84443 ==

== ENCOUNTER 2022-08-19 08:46 | Outpatient (CLI) | payer OTHER, SELFPAY ==
--- NOTE | 2022-08-19 08:15 | CRLHL7_ITS ---
For Patients: As a result of the Century Cures Act, medical imaging exams and procedure reports are released immediately into your electronic medical record. You may view this report before your referring provider. If you have questions, please contact your health care provider. INDICATION: 22 year-old female. Two months . Abnormal uterine bleeding. TECHNIQUE: Transabdominal and transvaginal pelvic ultrasound. FINDINGS: The uterus measures 8.2 x 4.9 x 6.2 cm. No myometrial mass. Small amount of fluid in the endometrial canal. No evidence for retained products of conception. No endometrial polyps. Minimal free fluid in the cul-de-sac likely physiologic. Normal-sized ovaries with the right measuring 2.9 x 2.1 x 1.6 cm and the left measuring 2.4 x 1.6 x 1.7 cm. IMPRESSION: Minimal fluid in the endometrial canal. No endometrial stripe thickening. Dictated by Vishal Wiley MD @ 08/19/2022 9:33:44 AM (Electronically Signed)
== END 2022-08-19 08:47 | disposition home or self-care (01) ==
PROVIDERS: Visit Provider Advanced Practice Midwife
DX: N93.9 Abnormal uterine and vaginal bleeding, unspecified (principal)
CPT/HCPCS: 76830; 76856

== ENCOUNTER 2022-12-04 19:24 | Emergency (ER) | payer OTHER, SELFPAY ==
[2022-12-04] VITALS (13 sets, daily range): BP systolic 108–122; BP diastolic 62–80; PULSE 78–113; RESP 24; TEMP 36.8; O2SAT 92–100; BMI 23.0
--- NOTE | 2022-12-04 19:45 | CRLHL7_ITS ---
For Patients: As a result of the Century Cures Act, medical imaging exams and procedure reports are released immediately into your electronic medical record. You may view this report before your referring provider. If you have questions, please contact your health care provider. INDICATION: SOB CHEST, PA AND LATERAL Upright PA and lateral radiographs of the chest were performed. Comparison: No previous studies are currently available for comparison. The lungs appear clear and there are no pleural effusions. Heart size and pulmonary vasculature appear normal. Visualized bones show no significant findings. IMPRESSION: No acute intrathoracic abnormality identified. SHEILA EUCEDA MD [employer] Dictated by: Pranav Euceda MD @ 12/04/2022 20:52:23 (Electronically Signed)
--- NOTE | 2022-12-04 20:00 | ED_ITS ---
HPI - SOB/Dyspnea General Date Seen: 12/04/22 Chief Complaint: Shortness of Breath/Dyspnea Stated Complaint: Shortness of breath Time Seen by Provider: 12/04/22 19:40 Source: patient Mode of arrival: ambulatory Limitations: no limitations History of Present Illness HPI Narrative: Patient is 22-year-old female with a history of asthma presenting to the emergency department for shortness of breath. She states his symptoms have gone on for the past 2 days. States is the worst flare-up of asthma she has had. Has been using home inhalers which will help for short amount of time within sy mptoms come back. It is states she has to take them every hour or so to keep the symptoms down. Has been having a cough and says she is coughing up green phlegm. Took 2 home COVID tests are negative. She does states she vapes occasionally. Denies fevers, chills, chest pain, abdominal headache, lightheadedness, dizziness, weakness, numbness. Related Data Home Medications Medication Instructions Recorded Confirmed prenat.vits,kylee,[id number] 1 tab PO QDAY 04/27/22 12/04/22 Previous Rx's Medication Instructions Recorded albuterol sulfate 90 mcg/actuation 1 inh inhalation ONCE #6.7 grams 11/24/21 aerosol inhaler (Ventolin HFA) norethindrone (contraceptive) 0.35 0.35 mg PO QDAY #84 tabs 07/29/22 mg tablet (Ortho Micronor) escitalopram oxalate 20 mg tablet 20 mg PO QDAY #90 tabs 09/14/22 (Lexapro) methylphenidate HCl 36 mg 36 mg PO QAM #90 tabs 09/14/22 tablet,extended release 24 hr (Concerta) prednisone 20 mg tablet 40 mg (2 x 20 mg) PO DAILY #10 tabs 12/04/22 Allergies Allergy/AdvReac Type Severity Reaction Status Date / Time lactose AdvReac Intermediate Verified 12/04/22 20:19 Review of Systems Status of ROS: Reports: 10 or more systems reviewed and unremarkable except as noted in History and below [facility] Medical History 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 (ICD-10) Autoimmune disease ?M35.9 - Systemic involvement of connective tissue, unspecified (ICD-10) Carpal tunnel syndrome ?G56.00 - Carpal tunnel syndrome, unspecified upper limb (ICD-10) Anxiety ?F41.9 - Anxiety disorder, unspecified (ICD-10) ADHD ?F90.9 - Attention-deficit hyperactivity disorder, unspecified type (ICD-10) Arthritis ?M19.90 - Unspecified osteoarthritis, unspecified site (ICD-10) Hx of migraines ?Z86.69 - Personal history of other diseases of the nervous system and sense organs (ICD-10) Asthma ?J45.909 - Unspecified asthma, uncomplicated (ICD-10) Acute appendicitis ?K35.80 - Unspecified acute appendicitis (ICD-10) Surgical History [place] teeth extracted ?K08.409 - Partial loss of teeth, unspecified cause, unspecified class (ICD- 10) S/P tonsillectomy and adenoidectomy ?Z90.89 - Acquired absence of other organs (ICD-10) History of appendectomy ?Z90.49 - Acquired absence of other specified parts of digestive tract (ICD- 10) Family History Mother Ankylosing spondylitis Sister Von Willebrand disease, Onset Age: 14 Ankylosing spondylitis Father Patient unsure of family history Maternal Grandmother Lung cancer metastatic to brain COPD (chronic obstructive pulmonary disease) Sister Ankylosing spondylitis Social History Narrative: SOCIAL?? Education:? trade school?? 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 Lives with:? has a room mate - planning on moving in with SO soon?? Pets: 3 dogs Abuse:? Denies past/present?? Special Diet: Denies?? Ok with a blood transfusion:? yes?? Culture or muslim beliefs:? denies? RISK FACTORS?? Exercise Times/wk: occasional walks, trying to increase?? Depression/Anxiety: history, anx increased without adhd meds ARELY: 12? PHQ 9: 10? Seat Belt Use: Routinely? Smoking:? Denies past/present vaped until +UPT?? Alcohol/day:? Denies while ??until +upt Caffeine:? 1-2 cups a day? Drug Use: Denies past/present THC past stopped with +UPT?? Chicken Pox:? Yes as a child?? MRSA:? Denies? Smoking Status: Never smoker Do you use any of these nicotine containing products: Vaping Products How often do you have a drink containing alcohol: monthly or less How often do you have six or more drinks on one occasion: Never AUDIT-C Alcohol total score: 1 Non-prescribed substance use: denies use Little interest or pleasure in doing things: several days Feeling down, depressed, or hopeless: not at all Exam Narrative: Exam Narrative: Const: Well-nourished, Well-developed, in mild distress Eyes: PERRL, no conjunctival injection, and symmetrical lids HENT: Atraumatic external nose and ears. Moist mucous membranes. Neck: Symmetric, trachea midline, No thyromegaly. CVS: RRR, No murmurs or gallops. Peripheral pulses 2+ and equal in all extremities RESP: Mild increased respiratory effort. Mild wheezing heard throughout lung arias GI: Nontender/Nondistended, No rebound or guarding. MSK:Extremities w/o deformity, Normal Active ROM Skin: Warm, Dry. No rashes or lesions. Neuro: Normal Muscle tone, No focal neurological deficits. Psych: Awake, Alert, & Oriented x3. Appropriate mood and affect. Const: Vital Signs, click to edit/add: Vital Signs - 24 hr 12/04/22 19:29 12/04/22 19:44 12/04/22 19:45 Temperature 98.3 F Pulse Rate 86 85 Pulse Rate [Pulse Oximeter] 86 Respiratory Rate 24 Blood Pressure Blood Pressure [Ri ght Upper Arm] 122/80 Pulse Oximetry 96 97 92 Oxygen Delivery Me thod Room Air 12/04/22 20:13 12/04/22 20:15 12/04/22 20:30 Temperature Pulse Rate 78 81 87 Pulse Rate [Pulse Oximeter] Respiratory Rate Blood Pressure Blood Pressure [Ri ght Upper Arm] Pulse Oximetry 97 98 99 Oxygen Delivery Me thod 12/04/22 20:31 Temperature Pulse Rate 91 Pulse Rate [Pulse Oximeter] Respiratory Rate Blood Pressure 113/65 Blood Pressure [Ri ght Upper Arm] Pulse Oximetry 99 Oxygen Delivery Me thod Course Vital Signs Vital signs: Initial Vital Signs Temperature 98.3 F 12/04/22 19:29 Temperature Source Temporal Artery Scan 12/04/22 19:29 Pulse Rate 86 12/04/22 19:29 Pulse Rhythm Regular 12/04/22 19:29 Respiratory Rate 24 12/04/22 19:29 Blood Pressure 122/80 12/04/22 19:29 Blood Pressure Mean 94 12/04/22 19:29 Blood Pressure Position Sitting 12/04/22 19:29 Pulse Oximetry 96 12/04/22 19:29 Oxygen Delivery Method Room Air 12/04/22 19:29 Vital Signs Temperature 98.3 F 12/04/22 19:29 Pulse Rate 86 12/04/22 19:29 Respiratory Rate 24 12/04/22 19:29 Blood Pressure 122/80 12/04/22 19:29 Pulse Oximetry 96 12/04/22 19:29 Oxygen Delivery Method Room Air 12/04/22 19:29 Temperature 98.3 F 12/04/22 19:29 Pulse Rate 91 12/04/22 20:31 Respiratory Rate 24 12/04/22 19:29 Blood Pressure 113/65 12/04/22 20:31 Pulse Oximetry 99 12/04/22 20:31 Oxygen Delivery Method Room Air 12/04/22 19:29 MDM - SOB/Dyspnea MDM Narrative Medical decision making narrative: Patient is a 22-year-old female with asthma. She states this feels like an asthma exacerbation with her worst ones. She has been using albuterol nebulizers at home with only short-term improvement. Last albuterol was 1 hour prior to arrival. Considering her fibular treatments only helped for a short amount of time will do an hour long continuous albuterol treatment. We also give her oral prednisone. She did say she has cough and green sputum sore ordered checks x-ray to look for any signs of pneumonia. Chest x-ray shows no signs of pneumonia or pneumothorax. Patient states she is feeling much better after the albuterol treatments is the best she has been able to breathe for the past 2 days. She has otherwise been well and is safe for discharge. She agrees with this plan. Imaging Data Chest x-ray: Radiologist's impression: INDICATION: SOB CHEST, PA AND LATERAL Upright PA and lateral radiographs of the chest were performed. Comparison: No previous studies are currently available for comparison. The lungs appear clear and there are no pleural effusions. Heart size and pulmonary vasculature appear normal. Visualized bones show no significant findings. IMPRESSION: No acute intrathoracic abnormality identified. SHEILA EUCEDA MD Discharge Plan Discharge Clinical Impression: Asthma Patient Disposition: Home, Self-Care Condition: Improved Instructions: Asthma (ED) Additional Instructions: Take the prednisone as directed. Start taking it tomorrow 12/05/2022. Follow-up with primary care provider. Return for new or worsening symptoms Prescriptions: New prednisone 20 mg tablet 40 mg PO DAILY Qty: 10 0RF No Action albuterol sulfate [Ventolin HFA] 90 mcg/actuation HFA aerosol inhaler 1 inh inhalation ONCE Qty: 6.7 0RF norethindrone (contraceptive) [Ortho Micronor] 0.35 mg tablet 0.35 mg PO QDAY Qty: 84 3RF escitalopram oxalate [Lexapro] 20 mg tablet 20 mg PO QDAY Qty: 90 3RF methylphenidate HCl [Concerta] 36 mg tablet extended release 24hr 36 mg PO QAM Qty: 90 0RF prenat.vits,kylee,[id number]-ivka-gheke Tablet 1 tab PO QDAY Follow Up/Referrals: Provider,Not a Local [Primary Care Provider] - Stand Alone Forms: [employer] Info Instructions
[2022-12-04] MEDS: ALBUTEROL SULFATE 2.5 MG/3 ML VIAL.NEB 25 MG NEB (20:08)
[2022-12-04] MEDS: predniSONE 20 MG TABLET 40 MG PO (20:20)
== END 2022-12-04 21:24 | disposition home or self-care (01) ==
PROVIDERS: Emergency Provider Student in an Organized Health Care Education/Training Program
DX: J45.909 Unspecified asthma, uncomplicated (principal)
CPT/HCPCS: 71046; 94640; 94761; 99283; 99284; J7512

== ENCOUNTER 2022-12-13 18:09 | Emergency (ER) | payer OTHER, SELFPAY ==
[2022-12-13 19:09] VITALS: BP 108/73; PULSE 85; RESP 20; TEMP 37.4; O2SAT 95; BMI 22.7
--- NOTE | 2022-12-13 20:11 | W.ED.CHARTNO ---
ED Chart Note Chart Note Details Date: 12/13/22 Details: Patient left without being seen. Did not sign refusal service form. She was not seen by provider
== END 2022-12-13 20:03 | disposition left against medical advice (07) ==
PROVIDERS: Emergency Provider Student in an Organized Health Care Education/Training Program
DX: Z53.21 Procedure and treatment not carried out due to patient leaving prior to being seen by health care provider (principal)

== ENCOUNTER 2023-06-10 11:15 | Emergency (ER) | payer OTHER, SELFPAY ==
[2023-06-10 11:28] VITALS: BP 105/71; PULSE 76; RESP 18; TEMP 36.9; O2SAT 99; BMI 23.0
--- NOTE | 2023-06-10 11:43 | ED.GENADULT ---
HPI - General Adult General Chief complaint: Animal Bite Stated complaint: dog bite Time Seen by Provider: 06/10/23 11:37 Source: patient Mode of arrival: ambulatory Limitations: no limitations History of Present Illness HPI narrative: 23-year-old female coming in today post dog bite. Patient is a semiconductor equipment technician. Dog is fully vaccinated according to the patient. Last tetanus shot was 2022. Related Data Previous Rx's Medication Instructions Recorded norethindrone (contraceptive) 0.35 0.35 mg PO QDAY #84 tabs 07/29/22 mg tablet (Ortho Micronor) escitalopram oxalate 20 mg tablet 20 mg PO QDAY #90 tabs 09/14/22 (Lexapro) albuterol sulfate 90 mcg/actuation 2 inh inhalation Q4-6H PRN 03/23/23 aerosol inhaler (Ventolin HFA) shortness of breath or wheezing #8.5 grams methylphenidate HCl 36 mg 36 mg PO QAM #30 tabs 05/31/23 tablet,extended release 24 hr (Concerta) Allergies Allergy/AdvReac Type Severity Reaction Status Date / Time lactose AdvReac Intermediate Verified 03/23/23 13:11 Review of Systems Status of ROS: Reports: 6 or more systems reviewed and unremarkable except as noted in History and below [facility] Medical History Medication management ?Z79.899 - Other longterm (current) drug therapy (ICD-10) Autoimmune disease ?M35.9 - Systemic involvement of connective tissue, unspecified (ICD-10) Carpal tunnel syndrome ?G56.00 - Carpal tunnel syndrome, unspecified upper limb (ICD-10) Anxiety ?F41.9 - Anxiety disorder, unspecified (ICD-10) ADHD ?F90.9 - Attention-deficit hyperactivity disorder, unspecified type (ICD-10) Arthritis ?M19.90 - Unspecified osteoarthritis, unspecified site (ICD-10) Hx of migraines ?Z86.69 - Personal history of other diseases of the nervous system and sense organs (ICD-10) Asthma ?J45.909 - Unspecified asthma, uncomplicated (ICD-10) Acute appendicitis ?K35.80 - Unspecified acute appendicitis (ICD-10) Surgical History Hx of section ?Z98.891 - History of uterine scar from previous surgery (ICD-10) [place] teeth extracted ?K08.409 - Partial loss of teeth, unspecified cause, unspecified class (ICD-10) S/P tonsillectomy and adenoidectomy ?Z90.89 - Acquired absence of other organs (ICD-10) History of appendectomy ?Z90.49 - Acquired absence of other specified parts of digestive tract (ICD-10) Family History Mother Ankylosing spondylitis Sister Von Willebrand disease, Onset Age: 14 Ankylosing spondylitis Father Patient unsure of family history Maternal Grandmother Lung cancer metastatic to brain COPD (chronic obstructive pulmonary disease) Sister Ankylosing spondylitis Social History Narrative: SOCIAL?? Education:? trade school?? 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 Lives with:? has a room mate - planning on moving in with SO soon?? Pets: 3 dogs Abuse:? Denies past/present?? Special Diet: Denies?? Ok with a blood transfusion:? yes?? Culture or yazidi beliefs:? denies? RISK FACTORS?? Exercise Times/wk: occasional walks, trying to increase?? Depression/Anxiety: history, anx increased without adhd meds ARELY: 12? PHQ 9: 10? Seat Belt Use: Routinely? Smoking:? Denies past/present vaped until +UPT?? Alcohol/day:? Denies while ??until +upt Caffeine:? 1-2 cups a day? Drug Use: Denies past/present THC past stopped with +UPT?? Chicken Pox:? Yes as a child?? MRSA:? Denies? What is your current living situation?: I presently have a place to live Problems where you live: declined to answer In the past 12 months, utilities in danger of being shut off: no In past 12 months, lack of transportation kept you from medical appts, meetings, work, or getting things needed for daily living: no In the past 12 mos, have been you worried that your food would run out before you had money to buy more?: never true In the past 12 mos, the food you bought just didn't last and you didn't have money to buy more?: never true Smoking Status: Never smoker Do you use any of these nicotine containing products: Vaping Products How often do you have a drink containing alcohol: monthly or less How often do you have six or more drinks on one occasion: Never AUDIT-C Alcohol total score: 1 Non-prescribed substance use: denies use How often does anyone, including family, friends and others, physically hurt you: never How often does anyone, including family, friends and others, insult or talk down to you: never How often does anyone, including family, friends and others, threaten you with harm: never How often does anyone, including family, friends and others, scream or curse at you: never Little interest or pleasure in doing things: several days Feeling down, depressed, or hopeless: not at all Exam Narrative: Exam Narrative: Well-nourished well-developed patient, in no acute distress. Alert and oriented. Answers questions appropriately. Mood and affect are appropriate. Thoughts are goal oriented and rational. No tangential or magical thinking noted. Patient speaks in full sentences without needing to catch her breath. HEENT: Normocephalic atraumatic. Pupils are equally round reactive to light. Extraocular muscles are intact. Conjunctivae are moist without any icterus noted. Moist mucous membranes. Extremities: Left hand: Patient has 4 very tiny puncture rosado on the dorsal surface of the hand, puncture wounds do not penetrate through the dermis. She has a small hematoma between the 2nd and 3rd metacarpals. This area is tender. She has no bony tenderness over the phalanges, metacarpals. She has no tenderness at the wrist. Fingers have full range of motion with flexion and extension she has tenderness with flexion of the 3rd digit. Const: Vital Signs, click to edit/add: Vital Signs - 24 hr 06/10/23 11:28 Temperature 98.4 F Pulse Rate [Right Pulse Oximeter] 76 Respiratory Rate 18 Blood Pressure [Ri ght Upper Arm] 105/71 Pulse Oximetry 99 Oxygen Delivery Me thod Room Air Course Course ED Course: Hand was washed and dressed. Vital Signs Vital signs: Initial Vital Signs Temperature 98.4 F 06/10/23 11:28 Temperature Source Temporal Artery Scan 06/10/23 11:28 Pulse Rate 76 06/10/23 11:28 Pulse Rhythm Regular 06/10/23 11:28 Pulse Strength 3+ Normal 06/10/23 11:28 Respiratory Rate 18 06/10/23 11:28 Blood Pressure 105/71 06/10/23 11:28 Blood Pressure Mean 82 06/10/23 11:28 Blood Pressure Position Sitting 06/10/23 11:28 Pulse Oximetry 99 06/10/23 11:28 Oxygen Delivery Method Room Air 06/10/23 11:28 Vital Signs Temperature 98.4 F 06/10/23 11:28 Pulse Rate 76 06/10/23 11:28 Respiratory Rate 18 06/10/23 11:28 Blood Pressure 105/71 06/10/23 11:28 Pulse Oximetry 99 06/10/23 11:28 Oxygen Delivery Method Room Air 06/10/23 11:28 Temperature 98.4 F 06/10/23 11:28 Pulse Rate 76 06/10/23 11:28 Respiratory Rate 18 06/10/23 11:28 Blood Pressure 105/71 06/10/23 11:28 Pulse Oximetry 99 06/10/23 11:28 Oxygen Delivery Method Room Air 06/10/23 11:28 Medical Decision Making MDM Narrative Medical decision making narrative: Dog bite, mild crush injury. Discussed symptomatic treatment in reasons for follow-up. Discharge Plan Discharge Additional Instructions: Okay to take ibuprofen as needed/as directed for discomfort. I would ice the swollen portion of the hand for 20 minutes at a time, 4-5 times today. Do not apply ice directly to skin. Okay to wear a snug Armand wrap for comfort, this can also help reduce swelling. Recommend elevating the hand above the heart as much as possible, this can help with discomfort and swelling. Prescriptions: No Action norethindrone (contraceptive) [Ortho Micronor] 0.35 mg tablet 0.35 mg PO QDAY Qty: 84 3RF escitalopram oxalate [Lexapro] 20 mg tablet 20 mg PO QDAY Qty: 90 3RF albuterol sulfate [Ventolin HFA] 90 mcg/actuation HFA aerosol inhaler 2 inh inhalation Q4-6H PRN (Reason: shortness of breath or wheezing) Qty: 8.5 1RF methylphenidate HCl [Concerta] 36 mg tablet extended release 24hr 36 mg PO QAM Qty: 30 0RF Follow Up/Referrals: Ric Day MD [Primary Care Provider] - Stand Alone Forms: [employer] Info Instructions
--- OUTSIDE RECORDS SUMMARY | 2023-06-10 11:49 | XMS_ITS | Clinical Summary ---
Author Name Unknown Organization [facility] Address [place], [place] [address] Care Team Providers Care Technical Staff Engineer Name Role Phone Pcp, No Primary Care Provider Unavailabl e Allergies Active Allergy Reactions Criticality Noted Date Comments Lactose GI Upset High 07/05/2021 Medications Medication Sig Dispensed Refills Start Date End Date Status albuterol (PROVENTIL; VENTOLIN) 0.042% neb solution Inhale 1 Ampule by mouth. Active dextroamphetamine-amph etamine (Adderall XR) 15 mg Extended-Release capsuleIndications:Att ention deficit hyperactivity disorder (ADHD), predominantly inattentive type Take 1 Capsule (15 mg) by mouth once daily. 30 Capsule 05/10/2021 Active dextroamphetamine-amph etamine (Adderall XR) 15 mg Extended-Release capsuleIndications:Att ention deficit hyperactivity disorder (ADHD), predominantly inattentive type Take 1 Capsule (15 mg) by mouth once daily. 90 Capsule 04/24/2021 Active Vienva 0.1-20 mg-mcg tablet 07/16/2021 Active SUMAtriptan (IMITREX) 50 mg tablet As Needed as needed Active Active Problems Problem Noted Date Diagnosed Date Pelvic pain 06/10/2021 ADHD, predominantly inattentive type 09/10/2020 Overview: Created by [employer] [facility] Annotation: Jan 21 2009 4:17PM - Love Huertas: DXd in 2nd grade at [employer] /off meds fall 2008 Replacement Utility updated for latest IMO load Allergic rhinitis 09/10/2020 Overview: Created by Conversion Replacement Utility updated for latest IMO load Learning disability 09/10/2020 Overview: Created by Conversion [facility] Annotation: Jan 21 2009 4:17PM - Aleksandar Love: dyslexia Chronic generalized abdominal pain 03/15/2018 Mild intermittent asthma without complication Mild persistent asthma, uncomplicated 01/16/2015 Immunizations Name Administration Dates Next Due COVID-19 vaccine (ObserveIT 30mcg/0.3mL) PF, MDV 03/11/2021 DTaP 07/17/2003, 9,1998,05/08 HIB PRP-OMP (PedvaxHIB) 1998,1998, Hepatitis A (Adult) 01/21/2009,06/06/2008 Hepatitis A, Unspecified 01/21/2009,06/06/2008 Hepatitis B (Peds) 1998,1998, 998 Hepatitis B, Unspecified 1998,1998,1 04/14/1997 Hib Conjugate, Unspecified 1998,1998 ,1998 Human Papilloma Virus Vaccine 01/18/2012, 012,11/20/2009 Inactivated Polio Vaccine 07/17/2003,1998, 1998 Influenza A (H1N1), Inactivated 01/21/2009 Influenza Virus, Unspecified 01/18/2012,11/21/19 10,11/20/2008 Influenza, IIV3 (Age >=3 years) 03/22/2014,11/20 Influenza, IIV4 03/11/2021,03/22/2014 Influenza,LAIV4 Live Intrana eleazar (Flumist) 01/18/2012,11/20/2009 MMR 07/17/2003,02/04/1999 Meningococcal Vaccine (Menactra) 03/22/2014,10/30 Polio Virus, Unspecified 1998,1998 Rotavirus Pentavalent (ROTATEQ) 1998,05/08 Tdap 11/20/2009 Tdap, Unspecified 07/17/2003, 9,1998,05/08 Varicella Vaccine 05/29/2007,02/04/1999 Social History Tobacco Use Types Packs/Day Years Used Date Smoking Tobacco: Never Smokeless Tobacco: Never Tobacco Cessation:Counseling Given: Yes Alcohol Use Standard Drinks/Week Comments Yes 0 (1 standard drink = 0.6 oz pur e alcohol) once every two weeks PHQ-2 Answer Date Recorded PHQ-2 TOTAL SCORE 2 06/10/2021 Social Connections Answer Date Recorded Frequency of Communication with Friends and Fami ly Not on file 02/28/2021 Financial Resource Strain Answer Date R ecorded Difficulty of Paying Living Expenses Not on file 02/28/2021 Difficulty of Paying Living Expenses Not on file 02/28/2021 Sex and Gender Information Value Date Recorded Sex Assigned at Not on file Gender Identity Not on file Sexual Orientation Not on file Obstetrics History Para Term AB IAB SAB Ectopic Multiple Livin g Live Births 1 1 1 Date Outcome GA Total Labor Labor/2nd/3rd Weight Sex Delivery Anes PTL Valerie A1 A5 Name Cl in 2019 SAB Last Filed Vital Signs Vital Sign Reading Time Taken Comments Blood Pressure 118/73 07/22/2021 9:41 AM CDT Pulse 92 07/22/2021 9:41 AM CDT Temperature 37.2 ??C (98.9 ??F) 06/23/2020 2:12 PM CD T Respiratory Rate - - Oxygen Saturation 100% 07/22/2021 9:41 AM CDT Inhaled Oxygen Concentration - - Weight 55.4 kg (122 lb 1.6 oz) 07/22/2021 9:41 A M CDT Height 161.9 cm (5' 3.75) 06/10/2021 12:41 PM C DT Body Mass Index 21.12 06/10/2021 12:41 PM CDT Plan of Treatment Health Maintenance Due Date Last Done Comments HIV for age 15-65 2013 Hepatitis C screening for age 18-79 01/26/2016 Tetanus booster 11/21/2019 11/20/2009, 06/28, 1998, Additional history exists BMI (ht and wt on same day) for age 18+ 06/10/2022 06/10/2021, 06/10/2021, 04/29/2021, Additional history exists Depression screening for age 12+ 06/10/2022 06/10/2021, 06/10/2021, 06/10/2021, Additional history exists COVID-19 vaccine series ( season) 2022 03/11/2021, 08/04/2020, 07/07/2020 Influenza for age 9-49 10/30/2023 , 03/22/2014, 03/22/2014, Additional history exists Pap test for age 21-65 07/29/2025 07/29/2022, 2019 Tdap Completed 11/20/2009, 06/28, 1998, Additional history exists HPV series for age 9-26 Completed 01/18/20 12, 09/16/2011, 11/20/2009 Pneumococcal series for age 6-64 Aged Out No longer eligible based on patient's age to complete this topic Procedures Procedure Name Priority Date/Time Associated Diagnosis Comments PROM BURN OFF OPERATOR THIN PREP PAP SCREEN IMAGED Routine 07/29/2022 11:55 AM CDT from Last 3 Months or Most Recently Relevant to Health Maintenance Results * (ABNORMAL) PROM BURN OFF OPERATOR THIN PREP PAP SCREEN IMAGED (07/29/2022 11:55 AM CDT) Case Report Gynecologic Cytology Report ? Case: [id number] ? Authorizing Provider: ??Malu Ramon CNM ? Collected: ? 07/29/2022 1155 ? Ordering Location: ? [facility] ?Received: ?08/03/2022 0806 ? First Screen: ?Rahel Kendrick ? Pathologist: ? Jessica Barksdale ? MD Patricia ? Specimen: ?PROM BURN OFF OPERATOR ThinPrep Vial Screening, Cervical ? 09/06/2022 5:21 PM CDT [facility] INTERPRETATION/ RESULT LOW GRADE SQUAMOUS INTRAEPITHELIAL LESION (LSIL)(A) (none) 09/06/2022 5:21 PM CDT [facility] EN[facility] IMEN ADEQUACY Satisfactory for evaluation Endocervical component present 09/06/2022 5:21 PM CDT [facility] HPV REQUEST HPV not requested 2022 5:21 PM CDT [facility] Last Pap Date 10/03/2019 09/06/2022 5:21 PM CDT [facility] Last Pap Result NIL 5:21 PM CDT [facility] ENTR[facility] LAB[facility] Abnormal Pap or [place] Bx in last 5 years No 09/06/2022 5:21 PM CDT [facility] Menstrual Status 09/06/2022 5:21 PM CDT [facility] [place] Bx Done Today No 09/06/2022 5:21 PM CDT [facility] Additional Information 09/06/2022 5:21 PM CDT [facility] Comment: Interpreted at [facility] - [address], [place] [address] Automated Review Successful 09/06/2022 5:21 PM CDT [facility] Comment:Specimen processed s uccessfully by automated franchise sales manager device, ThinPrep Imaging System, [employer] Note The pap test is a screening technique, not a diagnostic procedure. It is used primarily to screen for squamous cancers and precursor lesions. Published studies have shown that it is subject to both false negative and false positive results. The pap test should not be used as the sole means to diagnose or exclude pre-malignant and malignant lesions. 09/06/2022 5:21 PM CDT [facility] Other (Cervical) 07/29/2022 11:55 AM CDT 08/03/2022 8:06 AM CDT Malu Ramon CNM PATHOLOGY/CYTOLOGY [facility] [address] [place] [address], [place] from Last 3 Months or Most Recently Relevant to Health Maintenance Care Teams Technical Staff Engineer Relationship Specialty Start Date End Date Pcp, No . PCP - General 04/21/22
[2023-06-10 12:27] VITALS: BP 105/71; PULSE 76; RESP 18; TEMP 36.9
== END 2023-06-10 12:28 | disposition home or self-care (01) ==
PROVIDERS: Emergency Provider Family Medicine; PCP Family Medicine
DX: S61.452A Open bite of left hand, initial encounter (principal); W54.0XXA Bitten by dog, initial encounter; Y99.0 Civilian activity done for income or pay
CPT/HCPCS: 99283

== ENCOUNTER 2024-08-29 10:03 | Outpatient (CLI) | payer OTHER, SELFPAY ==
--- NOTE | 2024-08-29 10:15 | CRLHL7_ITS ---
For Patients: As a result of the Century Cures Act, medical imaging exams and procedure reports are released immediately into your electronic medical record. You may view this report before your referring provider. If you have questions, please contact your health care provider. OB ULTRASOUND FIRST TRIMESTER, TRANSVAGINAL INDICATION: Dating and viability. TECHNIQUE: Real time aparicio scale imaging of the fetus was performed. Transvaginal imaging performed. LMP: 07/06/2024. MARIEL by LMP: 04/12/2025. GA: 7 w, 5 d. Previous US: No. CRL: 1.7 cm. 8 w 0 d. MARIEL: 04/10/2025. FHR: 165 BPM. Gestational sac: 3.7 cm. Appears within normal limits. Yolk sac: 3.7 mm. Appears within normal limits. Right ovary: Within normal limits. 2.5 x 1.7 x 1.6 cm. Left ovary: Within normal limits. 3.8 x 2.2 x 2.6 cm. CL. COMMENT: IMPRESSION: 1. Single living intrauterine measuring 8 weeks 0 days and sonographic due date 04/10/2025. 2. Subchorionic hemorrhage measures 11 x 10 x 8 mm. Manolo Montgomery M.D. Diagnostic Radiologist [email or web address] SP/Dictated by: Manolo Montgomery MD @ 08/29/2024 11:53:00 AM (Electronically Signed)
== END 2024-08-29 10:04 | disposition home or self-care (01) ==
LOC: US 10:04
PROVIDERS: PCP Family Medicine; Visit Provider Midwife
DX: Z34.91 Encounter for supervision of normal pregnancy, unspecified, first trimester (principal); O20.9 Hemorrhage in early pregnancy, unspecified; Z3A.08 8 weeks gestation of pregnancy
CPT/HCPCS: 76817

== ENCOUNTER 2024-08-29 13:22 | Outpatient (CLI) | payer OTHER, SELFPAY ==
[2024-08-29 19:35] LABS: Chlamydia DNA Amplified* NOT DETECTED (No Detected); GC DNA Amplified* NOT DETECTED (No Detected)
[2024-09-01 02:38] LABS: HPV Source Cervix
== END 2024-08-29 13:23 | disposition home or self-care (01) ==
PROVIDERS: PCP Family Medicine; Visit Provider Registered Nurse
DX: Z34.91 Encounter for supervision of normal pregnancy, unspecified, first trimester (principal); Z3A.01 Less than 8 weeks gestation of pregnancy
CPT/HCPCS: 83020; 83021; 85660; 86592; 86703; 86704; 86706; 86762; 86787; 86803; 86850; 87086; 87340; 87491; 87591; 87624; 87625; 88141; 88142

== ENCOUNTER 2024-11-20 09:44 | Outpatient (CLI) | payer OTHER, SELFPAY ==
--- NOTE | 2024-11-20 10:00 | CRLHL7_ITS ---
For Patients: As a result of the Century Cures Act, medical imaging exams and procedure reports are released immediately into your electronic medical record. You may view this report before your referring provider. If you have questions, please contact your health care provider. OBSTETRICAL ULTRASOUND ??? ANATOMY SURVEY, 11/20/2024 INDICATION: Basic anatomy survey. CLINICAL HISTORY: MARIEL by LMP: 04/12/2025 Gestational age: 19 weeks 4 days TECHNIQUE: Real-time aparicio-scale transabdominal imaging of the fetus was performed. PREVIOUS ULTRASOUND: 08/29/2024 FINDINGS: position: Vertex Cervix: Visualized Technique: Transabdominal Length of closed cervix: 4.4 cm Placenta position: Anterior Technique: Transabdominal Placenta tip to internal os: 11.5 cm Umbilical cord: 3-vessel cord Placental insertion: Central Amniotic fluid: 4.2 cm SDP (greater than/equal to 2 to less than 8 cm) ANATOMY SURVEY: Observed Structures Cerebellum: Yes; 2 cm, 20 weeks 1 day Cisterna magna: Yes; 3.8 mm Nuchal fold: Yes; 4.8 mm Lateral ventricle: Yes; 6.8 mm CSP: Yes Midline falx: Yes Choroid plexus: Yes Spine: Yes Stomach: Yes Abdominal cord insert: Yes Urinary bladder: Yes Kidneys: Yes Diaphragm: Yes Nose/lips: Yes Orbital view: Yes Profile: Yes Upper extremities: Yes Lower extremities: Yes Hands: Yes Feet: Yes 4-chamber heart: Yes LVOT: Yes RVOT: Yes 3VV: Yes 3VTV: Yes BIOMETRY BPD: 4.6 cm, 19 weeks 5 days, 60% HC: 17.3 cm, 19 weeks 6 days, 56% AC: 15.8 cm, 21 weeks 0 days, 86% FL: 3.2 cm, 19 weeks 6 days, 53% FL/AC: 20.05% HC/AC ratio: 1.09 heart rate: 152 bpm age by this ultrasound: 20 weeks 1 day MARIEL by this ultrasound: 04/08/2025 Estimated weight: 349 grams (0 pounds 12 ounces) Percentile by MARIEL: 87% IMPRESSION: 1) Concordance of clinical and sonographic dating. 2) Normal anatomic survey. MANOLO DIOR M.D. Diagnostic Radiologist [email or web address] Transcribed: 4:36 p.m. CAL/Dictated by: Manolo Dior MD @ 11/20/2024 3:41:00 PM (Electronically Signed)
== END 2024-11-20 09:45 | disposition home or self-care (01) ==
LOC: US 09:45
PROVIDERS: PCP Family Medicine; Visit Provider Obstetrics & Gynecology
DX: Z34.92 Encounter for supervision of normal pregnancy, unspecified, second trimester (principal); Z3A.20 20 weeks gestation of pregnancy
CPT/HCPCS: 76805

== ENCOUNTER 2024-12-01 10:07 | Emergency (ER) | payer OTHER, SELFPAY ==
[2024-12-01] VITALS (9 sets, daily range): BP systolic 110–145; BP diastolic 64–78; PULSE 91–105; RESP 22–31; TEMP 37; O2SAT 96–99; BMI 28.0
--- OUTSIDE RECORDS SUMMARY | 2024-12-01 10:09 | XMS_ITS | Encounter Summary ---
Author Organization [facility] Address [address] [place] [address] Care Team Providers Care Bread Molder Name Role Phone Rosalia Reyes APRN, CNP Primary Care Provider + Encounter Details Date Type Department Care Team (Late st Contact Info) Description 03/22/2017 Correspondence None No Primary/Referring, Phy DME INSTRUCTION DELIVERY Social History Tobacco Use Types Packs/Day Years Used Date Smoking Tobacco: Never Smokeless Tobacco: Never Alcohol Use Standard Drinks/Week Comments Not Asked 0 (1 standard drink = 0.6 oz pur e alcohol) Comments No Sex and Gender Information Value Date Recorded Sex Assigned at Not on file Legal Sex Female 7:13 AM CDT Gender Identity Not on file Sexual Orientation Not on file documented as of this encounter Plan of Treatment Not on file documented as of this encounter Visit Diagnoses Not on filedocumented in this encounter Care Teams Bread Molder Relationship Specialty Start Date End Date Rosalia Reyes APRN, CNP [address] [place] [id number] PCP - General 08/23/24 documented as of this encounter
--- OUTSIDE RECORDS SUMMARY | 2024-12-01 10:09 | XMS_ITS | Clinical Summary ---
Author Organization [facility] Address [address] [place] [id number] Care Team Providers Care Rotary Derrick Operator Name Role Phone Pcp, No Primary Care Provider Unavailabl e Allergies Active Allergy Reactions Criticality Noted Date Comments Lactose GI Upset High 07/05/2021 Medications albuterol (PROVENTIL; VENTOLIN) 0.042% neb solution Inhale 1 Ampule by mouth. Active dextroamphetamine- amphetamine (Adderall XR) 15 mg Extended-Release capsuleIndications :Attention deficit hyperactivity disorder (ADHD), predominantly inattentive type Take 1 Capsule (15 mg) by mouth once daily. 30 Capsule 2 Active dextroamphetamine- amphetamine (Adderall XR) 15 mg Extended-Release capsuleIndications :Attention deficit hyperactivity disorder (ADHD), predominantly inattentive type Take 1 Capsule (15 mg) by mouth once daily. 90 Capsule 2 Active Vienva 0.1-20 mg-mcg tablet 2 Active SUMAtriptan (IMITREX) 50 mg tablet As Needed as needed Active Active Problems Problem Noted Date Diagnosed Date Pelvic pain 06/10/2021 ADHD, predominantly inattentive type 09/10/2020 Overview (09/10/2020): Created by [employer] [facility] Annotation: Jan 21 2009 4:17PM - Love Huertas: DXd in 2nd grade at [employer] /off meds fall 2008 Replacement Utility updated for latest IMO load Allergic rhinitis 09/10/2020 Overview (09/10/2020): Created by Conversion Replacement Utility updated for latest IMO load Learning disability 09/10/2020 Overview (09/10/2020): Created by Conversion [facility] Annotation: Jan 21 2009 4:17PM - Love Huertas: dyslexia Chronic generalized abdominal pain 03/15/2018 Mild intermittent asthma without complication Mild persistent asthma, uncomplicated 01/16/2015 Immunizations Immunization Administration Dates Next Due COVID-19 vaccine (Chip Estimate 30mcg/0.3mL) PF, MDV 03/11/2021 DTaP 07/17/2003, 9,1998,05/08 [...] Paying Living Expenses Not on file 02/28/2021 Comments No Sex and Gender Information Value Date Recorded Sex Assigned at Not on file Legal Sex Female 11:03 AM CDT Gender Identity Not on file Sexual Orientation Not on file Obstetrics History Para Term AB IAB SAB Ectopic Multiple Livin g Live Births 1 1 1 Date Outcome GA Total Labor Labor/2nd/3rd Weight Sex Type Anes PTL Valerie A1 A5 Name Clin 2019 SAB Last Filed Vital Signs Vital Sign Reading Time Taken Comments Blood Pressure 118/73 07/22/2021 9:41 AM CDT Pulse 92 07/22/2021 9:41 AM CDT Temperature 37.2 C (98.9 F) 06/23/2020 2:12 PM CDT Respiratory Rate - - Oxygen Saturation 100% [...] history exists COVID-19 vaccine series ( season) 2024 03/11/2021, 08/04/2020, 07/07/2020 Influenza Vaccine (#1) 2024 2, 03/22/2014, 03/22/2014, Additional history exists Pap test for age 21-65 09/20/2026 4, 09/21/2023, 07/29/2022, Additional history exists RSV vaccine for adults or (1 - 1-dose 75+ series) 2073 Hepatitis B series for 19+ Completed 10/21, 1998, 1998, Additional history exists HPV series for age 9-45 Completed 01/18/20 12, 09/16/2011, 11/20/2009 Pneumococcal series for age 6-49 Aged Out No longer eligible based on patient's age to complete this topic Procedures Procedure Name Priority Date/Time Associated Diagnosis Comments MECHANICAL INSULATOR THIN PREP PAP SCREEN IMAGED Routine 09/21/2023 10:55 AM CDT from Last 3 Months or Most Recently Relevant to Health Maintenance Results * (ABNORMAL) MECHANICAL INSULATOR THIN PREP PAP SCREEN IMAGED (09/21/2023 10:55 AM CDT) Case Report Gynecologic Cytology Report Case: [id number] Authorizing Provider: Kimbelry Rice NP Collected: 09/21/2023 1055 Ordering Location: [facility] Received: 09/23/2023 0816 First Screen: Rahel Kendrick Pathologist: Abelardo Kim MD Specimen: MECHANICAL INSULATOR ThinPrep Vial Screening, Cervical 10/03/2023 4:28 PM CDT [facility] INTERPRETATION/ RESULT ATYPICAL SQUAMOUS CELLS OF UNDETERMINED SIGNIFICANCE (ASCUS)(A) (none) 10/03/2023 4:28 PM CDT [facility] at 1628 CDT SPECIMEN ADEQUACY Satisfactory for evaluation Endocervical component present 10/03/2023 4:28 PM CDT [facility] HPV REQUEST HPV and PAP 10/03/2023 4:28 PM CDT [facility] Date of LMP 10/03/2023 4:28 PM CDT [facility] Comment:Unknown Last Pap Date 07/29/2022 10/03/2023 4:28 PM CDT [facility] Last Pap Result LSIL 4:28 PM CDT [facility] Menstrual Status Regular Periods 10/03/2023 4:28 PM CDT [facility] [place] Bx Done Today No 10/03/2023 4:28 PM T [facility] Additional Information 10/03/2023 4:28 PM CDT [facility] Comment: Interpreted at [facility] - [address], [place] [address] Automated Review Successful 10/03/2023 4:28 PM T [facility] Comment:Specimen processed s uccessfully by automated general neurologist device, ThinPrep Imaging System, [employer] ANCILLARY TESTING MECHANICAL INSULATOR HPV Ordered, Please see separate report 10/03/2023 4:28 PM T [facility] Note The pap test is a screening technique, not a diagnostic procedure. It is used primarily to screen for squamous cancers and precursor lesions. Published studies have shown that it is subject to both false negative and false positive results. The pap test should not be used as the sole means to diagnose or exclude pre-malignant and malignant lesions. 10/03/2023 4:28 PM CDT [facility] Other (Cervical) 09/21/2023 10:55 AM CDT 09/23/2023 8:16 AM CDT us Kimberly Rice NP PATHOLOGY/CYTOLOGY Final Result [facility] [address] [place] [address], [place] from Last 3 Months or Most Recently Relevant to Health Maintenance Insurance [employer] Care Teams Rotary Derrick Operator Relationship Specialty Start Date End Date Pcp, No . PCP - General 04/21/22
--- OUTSIDE RECORDS SUMMARY | 2024-12-01 10:09 | XMS_ITS | Clinical Summary ---
[facility] Address [address] [place] [address] Care Team Providers Care Chin Strap Sewer Name Role Phone Rosalia Reyes APRN, SECURITY GUARD Primary Care Provider + Source Comments You are receiving this document as you are listed as the primary care provider,follow-up provider, or the patient has been referred to you for consultation.This is in compliance with the Medicare and[facility] EHR Incentive Program,which states Providers who transition their patient to another setting of careor provider of care or refers their patient to another provider of care shouldprovide summary care record for each transition of care or referral. [employer] Allergies No known active allergies Medications fluticasone-salme terol (ADVAIR HFA) 230-21 mcg/actuation inhalerIndication s:Bronchitis with asthma, acute (HRC) Inhale 2 Puffs two times a day. Active methylPREDNISolon e (MEDROL 21 TABLET DOSEPACK) 4 MG tabletIndications :Bronchitis with asthma, acute (HRC) Take as directed for the dose rosamaria 21 Tab 8 Active Additional Information Patient not taking.Reported on 12/27/2018 Respiratory Therapy Supplies (NEBULIZER/TUBING /MOUTHPIECE)Indic ations:Bronchitis with asthma, acute (HRC) Inhale 1 Each 4 times daily as needed. 1 Kit 1 8 Active ALBUterol sulfate HFA 108 (90 BASE) MCG/ACT inhalerIndication s:Bronchitis with asthma, acute (HRC) Inhale 2 Puffs every 4 hours as needed for Wheezing or Shortness of Breath. Do not use more than 12 puffs in 24 hours. 6.7 g 1 8 Active ALBUterol 0.63 mg/3 mL (ACCUNEB) 0.63 MG/3ML nebulizer solutionIndicatio ns:Bronchitis with asthma, acute (HRC) Inhale 3 mL every 4 hours as needed for Wheezing. 60 Each 8 Active citalopram (CELEXA) 20 MG tablet Take 20 mg by mouth. 8 Active omeprazole (PRILOSEC) 20 MG capsule TAKE 1 CAPSULE BY MOUTH DAILY BEFORE MEALS. 8 Active ISIBLOOM 0.15-30 MG-MCG tablet TK 1 T PO QD 1 9 Active cyproheptadine (PERIACTIN) 4 MG tabletIndications :Chronic generalized abdominal pain Take 4 mg by mouth three times a day. 90 Tablet 2 9 Active Additional Information Patient not taking.Reported on 12/27/2018 levonorgest-eth estrad 91-Day (SEASONALE) 0.15-0.03 MG tabletIndications :Encounter for surveillance of contraceptive pills Take 1 Tablet by mouth daily. Do not take the placebo pills 91 Tablet 4 9 Active SUMAtriptan (IMITREX) 50 MG tabletIndications :Migraine without aura and without status migrainosus, not intractable Take 1 Tablet by mouth as needed for Migraine. May repeat one tablet after 2 hours if needed. Maximum 4 tabs/24 hours and 9 days/month 9 Tablet 11 9 Active Active Problems Problem Noted Date Diagnosed Date Mild intermittent asthma without complication Chronic generalized abdominal pain 03/15/2018 Resolved Problems Problem Noted Date Diagnosed Date Resolved Date Kidney trouble 05/29/2007 03/15/2018 Immunizations Immunization Administration Dates Next Due DTaP 07/17/2003,1998,1998 ,1998 HepB Ped/Adol (0-18 yrs) 1998,1998,1 04/14/1997 Hib, Unspecified Formulation 1998,07/23/18 99,1998 IPV (Polio) 07/17/2003,1998,1998 MMR 07/17/2003,02/04/1999 RV5 Rotateq (V04.89) 1998,1998 Varicella 05/29/2007,02/04/1999 Family History Medical History Relation Name Comments Glaucoma Paternal Grandmother Relation Name Status Comments Paternal Grandmother Social History Tobacco Use Types Packs/Day Years Used Date Smoking Tobacco: Never Smokeless Tobacco: Never Comments:Occasional vape Alcohol Use Standard Drinks/Week Comments Yes 0 (1 standard drink = 0.6 oz pur e alcohol) AUDIT-C Answer Date Recorded Frequency of Alcohol Consumption Never 06/24/2018 Average Number of Drinks Not on file 019 Frequency of Binge Drinking Not on file 05/30 PHQ-2 Answer Date Recorded PHQ-2 Score 2 05/02/2019 Comments No Sex and Gender Information Value Date Recorded Sex Assigned at Not on file Legal Sex Female 7:13 AM CDT Gender Identity Not on file Sexual Orientation Not on file Last Filed Vital Signs Vital Sign Reading Time Taken Comments Blood Pressure 108/63 05/02/2019 10:43 AM ANIMAL ASSISTANT Pulse 71 05/02/2019 10:43 AM ANIMAL ASSISTANT Temperature 36.3 C (97.4 F) 03/15/2018 1:10 PM ANIMAL ASSISTANT Respiratory Rate 24 03/22/2017 12:28 PM ANIMAL ASSISTANT Oxygen Saturation 97% 03/22/2017 12:28 PM ANIMAL ASSISTANT Inhaled Oxygen Concentration - - Weight 61.2 kg (135 lb) 05/02/2019 10:43 AM ANIMAL ASSISTANT Height 160 cm (5' 3) 05/02/2019 10:43 AM ANIMAL ASSISTANT Body Mass Index 23.91 05/02/2019 10:43 AM ANIMAL ASSISTANT Plan of Treatment Health Maintenance Due Date Last Done Comments Cervical Cancer Screening Due 1998 Hep C Screening (Preventive Services) 1998 HIV Screening (Preventive Services) 2014 Adult Preventive Visit 01/26/2016 05/29/2007 Asthma ACT (score of 20 or higher) 03/15/2019 03/15/2018 DTaP/Tdap/Td Vaccine (6 - Tdap) 11/21/2019 11/20/2009, 07/17/2003, 1998, Additional history exists COVID-19 Vaccine (2024- season) 2024 08/04/2020, 07/07/2020 Influenza Vaccine (#1) 2024 5, 03/22/2014, 01/18/2012, Additional history exists Zoster/Shingles Vaccine (1 of 2) 01/26/2048 HepB Vaccine Completed 1998, 04/28, 1998 Hib Vaccine Aged Out 1998, 06/29, 1998 No longer eligible based on patient's age to complete this topic IPV (Polio) Vaccine Completed 07/17/2003, 1998, 1998 Varicella Vaccine Completed 05/29/2007, 02/04/1999 HepA Vaccine Completed 01/21/2009, 12/30, 06/06/2008, Additional history exists HPV Vaccine Completed 01/18/2012, 08/28, 11/20/2009 MCV4 Vaccine Completed 03/22/2014, 11/20/2009 Chlamydia Discontinued 06/10/2021 Meningococcal B Vaccine Aged Out No l onger eligible based on patient's age to complete this topic Pneumococcal Vaccine Aged Out No long er eligible based on patient's age to complete this topic Insurance [facility] [place] [address] [facility] [address] [place] [address] Care Teams Chin Strap Sewer Relationship Specialty Start Date End Date Rosalia Reyes, GIS TECHNICIAN, SECURITY GUARD [address] [place], [place] [id number] PCP - General 08/23/24
--- OUTSIDE RECORDS SUMMARY | 2024-12-01 10:09 | XMS_ITS | Encounter Summary ---
Author Organization formerly [facility] Address [address] [place] [address] Care Team Providers Care Gemologist Name Role Phone Rosalia Reyes APRN, CNP Primary Care Provider + Encounter Details Date Type Department Care Team (Late st Contact Info) Description 03/22/2017 Correspondence None No Primary/Referring, Phy E EQUIPMENT CERTIFIED [employer] IN [employer] Social History Tobacco Use Types Packs/Day Years [...] on filedocumented in this encounter Care Teams Gemologist Relationship Specialty Start Date End Date Rosalia Reyes APRN, CNP [address] [place] [address] PCP - General 08/23/24 documented as of this encounter
[2024-12-01 10:42] LABS: Hematocrit* 31.8 % (33.0-51.0); Hemoglobin* 10.9 gm/dL (12.0-16.0); Immature Granulocytes Abs Auto 0.02 K/uL (0.00-0.30); Immature Granulocytes Pct Auto 0.2 %; Mean Corpuscular HGB Conc 34 gm/dL (32-36); Mean Corpuscular Hemoglobin 31 pg (26-34); Mean Corpuscular Volume 89 fL (80-100); RDW Coefficient of Variation % 12.9 % (11.5-15.5); Red Blood Count* 3.57 m/uL (4.00-5.20); White Blood Count* 8.35 K/uL (4.50-11.00)
[2024-12-01 10:49] LABS: Lymphocytes Absolute Auto 1.30 K/uL (0.90-2.90); Slide Review Reflex No
--- NOTE | 2024-12-01 10:52 | ED.SOB ---
HPI - SOB/Dyspnea General Chief Complaint: Shortness of Breath/Dyspnea Stated Complaint: Hard to breath, 21 wks expecting Time Seen by Provider: 12/01/24 10:09 History of Present Illness HPI Narrative: This 24-year-old female is 21 weeks and has history of reactive airway symptoms. She states that it almost only occurs in the fall months with particular allergens that occur at that time. She comes in with increased respiratory rate but is maintaining oximetry at 97% on room air and able to talk in complete sentences. She reports nasal congestion but does not feel like she is sick with an infection. There are some extended family members apparently that have COVID. She does not report any fever. Related Data Home Medications ?Medication ?Instructions ?Recorded ?Confirmed docosahexaenoic acid 200 mg mg PO 08/29/24 11/20/24 capsule ( DHA) Previous Rx's ?Medication ?Instructions ?Recorded albuterol sulfate 90 mcg/actuation 2 inh inhalation Q4-6H PRN 03/23/23 aerosol inhaler (Ventolin HFA) shortness of breath or wheezing #8.5 grams escitalopram oxalate 20 mg tablet 20 mg PO QDAY #90 tabs 06/13/23 (Lexapro) Held on 08/29/24. Instructions: sumatriptan succinate 25 mg tablet 25 mg PO ONCE #9 tabs 10/12/23 Held on 08/29/24. Instructions: bupropion HCl 150 mg 24 hr tablet, 150 mg PO QAM #90 tabs 01/18/24 extended release Held on 08/29/24. Instructions: methylphenidate HCl 36 mg 36 mg PO QAM #30 tabs 02/13/24 tablet,extended release 24 hr (Concerta) Held on 08/29/24. Instructions: methylprednisolone 4 mg tablets in See Rx Instructions PO .COMPLEX 12/01/24 a dose pack (Medrol (Aman)) #21 ea Allergies Allergy/AdvReac Type Severity Reaction Status Date / Time lactose AdvReac Intermediate Verified 11/20/24 11:33 Review of Systems Status of ROS: Reports: 10 or more systems reviewed and unremarkable except as noted in History and below Narrative: Constitutional: No fevers, no weight gain or loss. Eyes: No discharge. No vision changes. HENT: No congestion, no sore throat, no ear pain. Cardiovascular: No chest pain, no palpitations. Respiratory: Shortness of breath as described above. Gastrointestinal: No abdominal pain, no vomiting, no diarrhea. Genitourinary: No dysuria, no hematuria. Musculoskeletal: Normal range of motion. Skin: No rashes, no pruritis. Neurological: No dizziness, weakness, sensory change, speech change. Endo/Heme/Allergies: No bruising or bleeding. No polydipsia. Pysch: no suicidality, no anxiety, no insomnia. All other systems reviewed and are negative. [facility] Medical History (Updated 12/01/24 @ 11:38 by Abhi Tariq MD) History of COVID-19 ?Z86.16 - Personal history of COVID-19 (ICD-10) Autoimmune disease ?M35.9 - Systemic involvement of connective tissue, unspecified (ICD-10) Carpal tunnel syndrome ?G56.00 - Carpal tunnel syndrome, unspecified upper limb (ICD-10) Anxiety ?F41.9 - Anxiety disorder, unspecified (ICD-10) ADHD ?F90.9 - Attention-deficit hyperactivity disorder, unspecified type (ICD-10) Arthritis ?M19.90 - Unspecified osteoarthritis, unspecified site (ICD-10) Hx of migraines ?Z86.69 - Personal history of other diseases of the nervous system and sense organs (ICD-10) Asthma ?J45.909 - Unspecified asthma, uncomplicated (ICD-10) Acute appendicitis ?K35.80 - Unspecified acute appendicitis (ICD-10) Surgical History (Updated 08/30/24 @ 14:36 by Kimberly Rice CNP) Hx of section ?Z98.891 - History of uterine scar from previous surgery (ICD-10) Gary teeth extracted ?K08.409 - Partial loss of teeth, unspecified cause, unspecified class (ICD-10) S/P tonsillectomy and adenoidectomy ?Z90.89 - Acquired absence of other organs (ICD-10) History of appendectomy ?Z90.49 - Acquired absence of other specified parts of digestive tract (ICD-10) Family History Mother Ankylosing spondylitis Sister Von Willebrand disease, Onset Age: 14 Ankylosing spondylitis Father Patient unsure of family history Maternal Grandmother Lung cancer metastatic to brain COPD (chronic obstructive pulmonary disease) Sister Ankylosing spondylitis Social History (Updated 08/29/24 @ 13:08 by Nallely Madsen MA) Narrative: SOCIAL?? Education:? trade school?? 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 Lives with:? has a room mate - planning on moving in with SO soon?? Pets: 3 dogs Abuse:? Denies past/present?? Special Diet: Denies?? Ok with a blood transfusion:? yes?? Culture or confucianism beliefs:? denies? RISK FACTORS?? Exercise Times/wk: occasional walks, trying to increase?? Depression/Anxiety: history, anx increased without adhd meds ARELY: 12? PHQ 9: 10? Seat Belt Use: Routinely? Smoking:? Denies past/present vaped until +UPT?? Alcohol/day:? Denies while ??until +upt Caffeine:? 1-2 cups a day? Drug Use: Denies past/present THC past stopped with +UPT?? Chicken Pox:? Yes as a child?? MRSA:? Denies? What is your current living situation?: I presently have a place to live In the past 12 months, utilities in danger of being shut off: no In past 12 months, lack of transportation kept you from medical appts, meetings, work, or getting things needed for daily living: no In the past 12 mos, have been you worried that your food would run out before you had money to buy more?: never true In the past 12 mos, the food you bought just didn't last and you didn't have money to buy more?: never true Smoking Status: Never smoker Do you use any of these nicotine containing products: Vaping Products How often do you have a drink containing alcohol: monthly or less How often do you have six or more drinks on one occasion: Never AUDIT-C Alcohol total score: 1 Non-prescribed substance use: denies use How often does anyone, including family, friends and others, physically hurt you: never How often does anyone, including family, friends and others, insult or talk down to you: never How often does anyone, including family, friends and others, threaten you with harm: never How often does anyone, including family, friends and others, scream or curse at you: never Exam Narrative: Exam Narrative: Constitutional: Well-developed, well-nourished, no acute distress. HEENT: Normocephalic, atraumatic. Neck: Normal range of motion. Nontender. Supple. Heart: Regular. No murmurs. Normal rate. Intact distal pulses. Lungs: Mild expiratory wheezes. Good air movement but use of accessory muscles for breathing. Able to speak in complete sentences. Oximetry normal on room air at 97%. Abdomen: Normal bowel sounds. Nontender. No rebound tenderness. Gravid. Genitalia: Deferred. Back: No midline tenderness. Normal range of motion. Extremities: Normal range of motion. No injury. Skin: Intact. No rash. Warm. No erythema or pallor. Neurologic: No altered sensation. No weakness. Alert and oriented. Psychiatric: No suicidality. No anxiety or depression. No insomnia. Nursing notes and vitals signs are reviewed. Const: Vital Signs, click to edit/add: Vital Signs - 24 hr 12/01/24 10:13 12/01/24 10:21 12/01/24 10:23 Temperature 98.6 F Pulse Rate 96 95 Pulse Rate [Pulse Oximeter] 105 H Respiratory Rate 28 H 28 H Blood Pressure 117/78 Blood Pressure [Le ft Upper Arm] 145/75 H Pulse Oximetry 98 98 99 Oxygen Delivery Me thod Room Air 12/01/24 10:30 12/01/24 10:32 12/01/24 11:00 Temperature Pulse Rate 95 100 Pulse Rate [Pulse Oximeter] Respiratory Rate 31 H 25 H Blood Pressure 117/76 Blood Pressure [Le ft Upper Arm] Pulse Oximetry 97 98 97 Oxygen Delivery Me thod 12/01/24 11:02 12/01/24 11:03 12/01/24 11:15 Temperature Pulse Rate 92 91 92 Pulse Rate [Pulse Oximeter] Respiratory Rate 25 H 22 22 Blood Pressure 110/64 Blood Pressure [Le ft Upper Arm] Pulse Oximetry 97 96 97 Oxygen Delivery Me thod Course Vital Signs Vital signs: Initial Vital Signs Temperature 98.6 F 12/01/24 10:13 Temperature Source Temporal Artery Scan 12/01/24 10:13 Pulse Rate 105 H 12/01/24 10:13 Respiratory Rate 28 H 12/01/24 10:13 Blood Pressure 145/75 H 12/01/24 10:13 Blood Pressure Mean 98 12/01/24 10:13 Blood Pressure Position Sitting 12/01/24 10:13 Pulse Oximetry 98 12/01/24 10:13 Oxygen Delivery Method Room Air 12/01/24 10:13 Vital Signs Temperature 98.6 F 12/01/24 10:13 Pulse Rate 105 H 12/01/24 10:13 Respiratory Rate 28 H 12/01/24 10:13 Blood Pressure 145/75 H 12/01/24 10:13 Pulse Oximetry 98 12/01/24 10:13 Oxygen Delivery Method Room Air 12/01/24 10:13 Temperature 98.6 F 12/01/24 10:13 Pulse Rate 92 12/01/24 11:15 Respiratory Rate 22 12/01/24 11:15 Blood Pressure 110/64 12/01/24 11:02 Pulse Oximetry 97 12/01/24 11:15 Oxygen Delivery Method Room Air 12/01/24 10:13 Medications Administered Medications: Discontinued Medications Generic Name Dose Route Start Last Admin Trade Name Conrad PRN Reason Stop Dose Admin Dexamethasone 10 mg 12/01/24 11:00 12/01/24 10:58 Dexamethasone 10 Mg/Ml Pf PO 12/01/24 11:01 10 mg ONCE ONE Administration MDM - SOB/Dyspnea MDM Narrative Medical decision making narrative: This patient comes in with some reactive airway symptoms that she states occurs about this time every year. She does not use albuterol at all any other time of the year. Prior to arrival she used albuterol by nebulization about 5 times without much relief. She received an oral dose of dexamethasone here. She continues to have reassuring vital signs but also continues to have some increased work of breathing and I do hear persistent expiratory wheezes specially on the left side. The patient did also then receive a DuoNeb. She is okay to be discharged home. I did provide a prescription for Medrol Dosepak. She does have albuterol at home that can be used with a nebulizer. Lab Data Labs: Lab Results 12/01/24 Range/Units 10: WBC 8.35 (4.50-11.00) K/uL RBC 3.57 L (4.00-5.20) m/uL Hgb 10.9 L (12.0-16.0) gm/dL Hct 31.8 L (33.0-51.0) % MCV 89 (80-100) fL MCH 31 (26-34) pg MCHC 34 (32-36) gm/dL RDW Coeff of Niki 12.9 (11.5-15.5) % Plt Count 178 (140-440) K/uL Neut % (Auto) 73.8 H (42.0-72.0) % Lymph % (Auto) 15.2 L (20-44) % Appling % (Auto) 6.7 (0.0-11.0) % Eos % (Auto) 3.6 (0.0-7.0) % Baso % (Auto) 0.5 (0.0-3.0) % Neut # (Auto) 6.20 (1.7-7.0) K/uL Lymph # (Auto) 1.30 (0.90-2.90) K/uL Appling # (Auto) 0.60 (0.00-0.90) K/UL Eos # (Auto) 0.30 (0.00-0.50) K/uL Baso # (Auto) 0.04 (0.00-0.30) K/uL Abs Immat Gran (auto) 0.02 (0.00-0.30) K/uL Imm/Tot Granulo (auto) 0.2 % Sodium 134 L (135-149) mmol/L Potassium 3.8 (3.6-5.1) mmol/L Chloride 105 (96-114) mmol/L Carbon Dioxide 22 (20-32) mmol/L Anion Gap 7 (7-15) mEq/L BUN 4 L (5-24) mg/dL Creatinine 0.5 (0.5-1.5) mg/dL Estimated Creat Clear 141.04 Estimated GFR 133 ml/min Glucose 107 (60-115) mg/dL Calcium 8.9 (8.4-10.6) mg/dL SARS-CoV-2 (PCR) Negative SARS-CoV-2 (Negative) Influenza Type A (PCR) Negative PCR FLU A (Negative) Influenza Type B (PCR) Negative PCR FLU B (Negative) RSV (PCR) Negative PCR RSV (Negative) Discharge Plan Discharge Clinical Impression: Asthma with acute exacerbation Patient Disposition: Home, Self-Care Condition: Stable Additional Instructions: Use albuterol as needed and directed. If symptoms are recurrent or persistent use Medrol Dosepak and return if not improving. Prescriptions: New methylprednisolone [Medrol (Aman)] 4 mg tablets,dose pack See Rx Instructions .ROUTE .COMPLEX Qty: 21 0RF Rx Instructions: orally per package directions No Action albuterol sulfate [Ventolin HFA] 90 mcg/actuation HFA aerosol inhaler 2 inh inhalation Q4-6H PRN (Reason: shortness of breath or wheezing) Qty: 8.5 1RF bupropion HCl 150 mg tablet extended release 24 hr 150 mg PO QAM Qty: 90 1RF escitalopram oxalate [Lexapro] 20 mg tablet 20 mg PO QDAY Qty: 90 1RF sumatriptan succinate 25 mg tablet 25 mg PO ONCE Qty: 9 5RF Rx Instructions: may repeat once after at least 2 hours DHA 200 mg capsule PO methylphenidate HCl [Concerta] 36 mg tablet extended release 24hr 36 mg PO QAM Qty: 30 0RF Follow Up/Referrals: Ric Day MD [Primary Care Provider, Family Practice] Stand Alone Forms: MyHealth Info Instructions
[2024-12-01] MEDS: DEXAMETHASONE 10 MG/ML PF PO (10:58)
[2024-12-01 11:01] LABS: Chloride* 105 mmol/L (96-114); Potassium* 3.8 mmol/L (3.6-5.1); Sodium* 134 mmol/L (135-149)
[2024-12-01 11:04] LABS: Anion Gap 7 mEq/L (7-15); Blood Urea Nitrogen* 4 mg/dL (5-24); Calcium* 8.9 mg/dL (8.4-10.6); Carbon Dioxide* 22 mmol/L (20-32); Creatinine* 0.5 mg/dL (0.5-1.5); Est. Creatinine Clearance* 141.04; Estimated Glomerular Filt Rate 133 ml/min; Glucose* 107 mg/dL (60-115)
[2024-12-01 11:22] LABS: PCR FLU A Negative PCR FLU A (Negative); PCR FLU B Negative PCR FLU B (Negative); PCR RSV Negative PCR RSV (Negative); SARS PCR* Negative SARS-CoV-2 (Negative)
--- NOTE | 2024-12-01 11:51 | RESP.RT ---
Patient is currently 21 weeks with an upper respiratory congestion issue that is causing increased work of breathing over the past few days. She states that she does her nebs a couple of times each year, and they are more common during the fall. Extended family has Covid currently. She has a RR of 24 with audible mucus wheeze in her upper airway. She has done 5 Albuterol nebs last night and today with no relief. Recommend a steroid to help decrease the inflammation. Humidity and mucus clearance will help relieve symptoms as well.
[2024-12-01] MEDS: IPRAT-ALBUT 0.5-2.5 MG/3 ML NEB 1 NEB IH (12:09)
== END 2024-12-01 12:32 | disposition home or self-care (01) ==
PROVIDERS: Emergency Provider Emergency Medicine Emergency Medical Services; PCP Family Medicine
DX: J45.901 Unspecified asthma with (acute) exacerbation (principal)
CPT/HCPCS: 36415; 80048; 85025; 87631; 94761; 99283; 99284; J1100

== ENCOUNTER 2025-01-16 10:20 | Outpatient (CLI) | payer SELFPAY | END 2025-01-16 10:21 | disposition home or self-care (01) | LOC: NFLDREF 01-19 19:13 | PROVIDERS: PCP Family Medicine; Referring Provider Family Medicine; Visit Provider Obstetrics & Gynecology | DX: Z34.92 Encounter for supervision of normal pregnancy, unspecified, second trimester (principal) | CPT/HCPCS: 86592 ==

== ENCOUNTER 2025-02-01 15:04 | Outpatient (CLI) | payer OTHER, SELFPAY ==
[2025-02-01 15:16] VITALS: PULSE 80; O2SAT 97
[2025-02-01 15:17] VITALS: BP 104/57; PULSE 87; RESP 20; TEMP 36.6
[2025-02-01 15:21] VITALS: PULSE 90; O2SAT 97
[2025-02-01 15:26] VITALS: PULSE 88; O2SAT 97
[2025-02-01 15:50] LABS: Appearance Urine Clear (Clear)
[2025-02-01 16:02] LABS: Trichomonas No Trichomonas Seen (None Seen)
[2025-02-01 16:19] LABS: Amnisure Rom* Negative
[2025-02-01 16:50] LABS: Fetal Fibronectin* Negative (Negative)
[2025-02-01 17:39] LABS: Bacterial Vaginosis* Negative (Negative); Candida glab/krus NOT DETECTED (No Detected)
[2025-02-01 18:00] VITALS: BP 92/53; PULSE 75; PULSE 81; RESP 16; TEMP 36.8; O2SAT 99
--- NOTE | 2025-02-01 18:31 | PC.OBNST ---
NST Note NST Note Start: 02/01/25 15:07 Freq: ONCE Status: Active Protocol: Document 02/01/25 18:29 BRM (Rec: 02/01/25 18:31 BRM No Response) NST Note 3 Para (# of births) 1 EDC 04/12/25 Gestational Age In 30 Weeks & 0 Days Weeks & Days Patient Presented Contractions/cramping with Complaint(s) of Other Complaints rule out pre-term labor Reactive Yes Appropriate for Yes Gestational Age RN Girish Cuadra RN Date 02/01/25 Reactive Yes Appropriate for Yes Gestational Age ALICE Toledo MD Date 02/01/25 OB NST charge Yes Complete NST Note Yes via Write Note The provider's electronic signature indicates the NST is reactive/appropriate for gestational age. *Note to provider: If an addendum is required, open the patient's chart and click on the note under the Nurse/Allied Health tab.
== END 2025-02-01 18:05 | disposition home or self-care (01) ==
LOC: OB OUT 15:04 → OB 15:05
PROVIDERS: PCP Family Medicine; Visit Provider Obstetrics & Gynecology
DX: O47.03 False labor before 37 completed weeks of gestation, third trimester (principal); Z3A.30 30 weeks gestation of pregnancy
CPT/HCPCS: 59025; 81003; 81513; 84112; 87086; 87210; 87481; 87661; G0463